=== PATIENT | female | born 1930 | race Caucasian/White ===

== ENCOUNTER 2017-06-22 16:53 | Inpatient (IN) | payer MEDICARE, BC ==
[2017-06-22] MEDS ORDERED: SODIUM CHLORIDE 0.9% 1,000 ML IV STA (17:23)
[2017-06-22] MEDS ORDERED: SODIUM CHLORIDE 0.9% 500 ML IV STA (17:23)
[2017-06-22] MEDS ORDERED: RX INFO: IV CONTRAST WAS GIVEN 1 EACH MISC MISCELLANE PRN (17:24)
--- NOTE | 2017-06-22 17:31 | ED ---
Abdominal Pain HPI - General Chief Complaint: Abdominal Pain Stated Complaint: Abd Pain Time Seen by Provider: 06/22/17 17:05 Source: patient, EMS, RN notes reviewed, old records reviewed Mode of arrival: EMS Limitations: no limitations - History of Present Illness Initial Comments: This is an 87-year-old female presenting to the emergency department via EMS from a transfer of metal edge of the elbow. Patient complains of diffuse abdominal pain for the past day. Patient reports that she did have a loose bowel movement yesterday but was very small. She reports that she feels as if she still constipated. She states that the pain radiates to her entire abdomen. She states that she's had no difficulty with urination. She does have a history of COPD but states that she has been short of breath. She is currently on oxygen. Patient denies any fever or chills. She denies any vomiting but states that she feels very full and bloated. Patient has a past medical history hyperlipidemia, hypertension, COPD, CAD, and weakness. She is a DO NOT RESUSCITATE order. - Related Data Home Medications Medication Instructions Recorded Confirmed Acetaminophen Tab [Tylenol Tab] 650 mg PO Q6H PRN 06/22/17 06/22/17 Amino Acids/Protein Hydrolys 30 ml PO BID 06/22/17 06/22/17 [Pro-Stat Supplement] Artificial Tears-Hypromellose 2 drops BOTH EYES BID PRN 06/22/17 06/22/17 [Artificial Tear Drops] Aspirin EC [Ecotrin Low Dose] 81 mg PO HS 06/22/17 06/22/17 Bisacodyl 10 mg RECTAL DAILY PRN 06/22/17 06/22/17 Ciclopirox Olamine [Loprox 0.77% 1 applic TOPICAL BID 06/22/17 06/22/17 cream] Citalopram Hydrobromide [CeleXA] 20 mg PO DAILY 06/22/17 06/22/17 Ipratropium-Albuterol Nebulize 3 ml INHALATION RT-Q6H PRN 06/22/17 06/22/17 [Duoneb 0.5 mg-3 mg/3 ml Soln] Latanoprost Ophth [Xalatan 0.005%] 1 drops BOTH EYES HS@199906/22/17 06/22/17 Magnesium Hydroxide [Milk of 2,400 mg PO DAILY PRN 06/22/17 06/22/17 Magnesia] Meclizine [Antivert] 12.5 mg PO Q8H PRN 06/22/17 06/22/17 Omeprazole 20 mg PO DAILY 06/22/17 06/22/17 Polyethylene Glycol 3350 [Miralax] 17 gm PO DAILY 06/22/17 06/22/17 Sennosides [Senna] 8.6 mg PO HS@2000 06/22/17 06/22/17 amLODIPine/ATORVASTATIN [Caduet 10 1 tab PO DAILY 06/22/17 06/22/17 mg-10 mg Tablet] Allergies Allergy/AdvReac Type Severity Reaction Status Date / Time No Known Allergies Allergy Verified 06/22/17 17:22 Review of Systems ROS Statement: Those systems with pertinent positive or pertinent negative responses have been documented in the HPI. ROS Other: All systems not noted in ROS Statement are negative. Past Medical History Past Medical History: COPD, Hyperlipidemia, Hypertension Additional Past Medical History / Comment(s): sepsis, CKD, UTI History of Any Multi-Drug Resistant Organisms: None Reported Past Surgical History: Orthopedic Surgery Past Psychological History: Depression Smoking Status: Never smoker Past Alcohol Use History: None Reported Past Drug Use History: None Reported - Past Family History Brother(s) Family Medical History: Cancer Father Family Medical History: Cancer Additional Family Medical History / Comment(s): lung cancer and ? colon cancer Mother Family Medical History: CVA/TIA General Exam - General Exam Comments Initial Comments: Zahra 87-year-old female. Patient appears acutely ill. Limitations: no limitations General appearance: alert, in no apparent distress Head exam: Present: atraumatic, normocephalic, normal inspection Eye exam: Present: normal appearance, PERRL, EOMI. Absent: scleral icterus, conjunctival injection, periorbital swelling ENT exam: Present: normal exam. Absent: mucous membranes moist (Membranes are dry.) Neck exam: Present: normal inspection. Absent: tenderness, meningismus, lymphadenopathy Respiratory exam: Present: normal lung sounds bilaterally. Absent: respiratory distress, wheezes, rales, rhonchi, stridor Cardiovascular Exam: Present: regular rate, normal rhythm, normal heart sounds. Absent: systolic murmur, diastolic murmur, rubs, gallop, clicks GI/Abdominal exam: Present: soft, tenderness (Patient has diffuse tenderness in the abdomen. Left lower quadrant and right lower quadrant feel firm.), normal bowel sounds, diminished bowel sounds (Patient has diminished bowel sounds in the left lower quadrant.). Absent: distended, guarding, rebound, rigid Extremities exam: Present: normal inspection, full ROM, normal capillary refill. Absent: tenderness, pedal edema, joint swelling, calf tenderness Back exam: Present: normal inspection Neurological exam: Present: alert, oriented X3, CN II-XII intact Psychiatric exam: Present: normal affect, normal mood Skin exam: Present: warm, dry, intact, normal color. Absent: rash Course Vital Signs 06/22/17 06/22/17 06/22/17 17:01 17:59 18:06 Temperature 97.1 F L Pulse Rate 92 87 Respiratory 20 16 16 Rate Blood Pressure 121/61 127/72 O2 Sat by Pulse 95 97 Oximetry 06/22/17 06/22/17 06/22/17 20:00 21:00 21:48 Temperature 97.6 F Pulse Rate 80 77 Respiratory 16 16 16 Rate Blood Pressure 103/63 130/64 O2 Sat by Pulse 97 97 96 Oximetry 06/22/17 21:54 Temperature 97.5 F L Pulse Rate 81 Respiratory 16 Rate Blood Pressure 110/59 O2 Sat by Pulse 97 Oximetry Medical Decision Making - Medical Decision Making This is an 87-year-old female presenting to the emergency department via EMS from a transfer of [facility]. Patient complains of diffuse abdominal pain for the past day. Patient reports that she did have a loose bowel movement yesterday but was very small. She reports that she feels as if she still constipated. She states that the pain radiates to her entire abdomen. She states that she's had no difficulty with urination. She does have a history of COPD but states that she has been short of breath. She is currently on oxygen. Patient denies any fever or chills. She denies any vomiting but states that she feels very full and bloated. Patient's lab work was reviewed as negative for any significant acute process. Patient has significant tenderness and firmness over the abdomen. CT abdomen and pelvis without contrast was obtained due to her poor renal function. CT showed significant amount of ascites. We discussed this with the patient seems to be new. Patient's chest x-ray was also reviewed signs of mild heart for a. BNP is elevated. I discussed with Dr. Falcon. He discussed this case with Dr. Jalloh. He recommended lab work to be obtained after doing her elbow centesis procedure. Dr. Falcon did obtain a sample of ascites fluid. This will be sent for testing. Put the patient on Rocephin and Flagyl preemptively, if this this could be infected SBP due to patient's significant tenderness. Case discussed with [facility] hospitalist with consult to Dr. Jalloh. - Lab Data Result diagrams: 06/22/17 17:50 06/22/17 17:50 Lab Results 06/22/17 06/22/17 06/22/17 Range/Units 17:50 17:50 17:50 WBC 9.3 (3.8-10.6) k/uL RBC 3.30 L (3.80-5.40) m/uL Hgb 9.2 L (11.4-16.0) gm/dL Hct 29.5 L (34.0-46.0) % MCV 89.3 (80.0-100.0) fL MCH 27.8 (25.0-35.0) pg MCHC 31.1 (31.0-37.0) g/dL RDW 13.8 (11.5-15.5) % Plt Count 642 H (150-450) k/uL Neutrophils % 81 % Lymphocytes % 7 % Monocytes % 8 % Eosinophils % 1 % Basophils % 0 % Neutrophils # 7.6 (1.3-7.7) k/uL Lymphocytes # 0.7 L (1.0-4.8) k/uL Monocytes # 0.8 (0-1.0) k/uL Eosinophils # 0.1 (0-0.7) k/uL Basophils # 0.0 (0-0.2) k/uL PT (9.0-12.0) sec INR (<1.2) APTT (22.0-30.0) sec Sodium 133 L (137-145) mmol/L Potassium 4.8 (3.5-5.1) mmol/L Chloride 99 (98-107) mmol/L Carbon Dioxide 23 (22-30) mmol/L Anion Gap 11 mmol/L BUN 66 H (7-17) mg/dL Creatinine 1.50 H (0.52-1.04) mg/dL Est GFR (MDRD) Af Amer 40 (>60 ml/min/1.73 sqM) Est GFR (MDRD) Non-Af 33 (>60 ml/min/1.73 sqM) Glucose 128 H (74-99) mg/dL Plasma Lactic Acid Hamzah (0.7-2.0) mmol/L Calcium 8.6 (8.4-10.2) mg/dL Magnesium 2.5 H (1.6-2.3) mg/dL Total Bilirubin 0.2 (0.2-1.3) mg/dL AST 35 (14-36) U/L ALT 46 (9-52) U/L Alkaline Phosphatase 112 (38-126) U/L Total Creatine Kinase <20 L (30-135) U/L CK-MB (CK-2) 0.7 (0.0-2.4) ng/mL CK-MB (CK-2) Rel Index 0.0 Troponin I <0.012 (0.000-0.034) ng/mL NT-Pro-B Natriuret Pep pg/mL Total Protein 5.6 L (6.3-8.2) g/dL Albumin 2.8 L (3.5-5.0) g/dL Amylase 44 (30-110) U/L Lipase 131 (23-300) U/L 06/22/17 06/22/17 06/22/17 Range/Units 17:50 17:50 17:50 WBC (3.8-10.6) k/uL RBC (3.80-5.40) m/uL Hgb (11.4-16.0) gm/dL Hct (34.0-46.0) % MCV (80.0-100.0) fL MCH (25.0-35.0) pg MCHC (31.0-37.0) g/dL RDW (11.5-15.5) % Plt Count (150-450) k/uL Neutrophils % % Lymphocytes % % Monocytes % % Eosinophils % % Basophils % % Neutrophils # (1.3-7.7) k/uL Lymphocytes # (1.0-4.8) k/uL Monocytes # (0-1.0) k/uL Eosinophils # (0-0.7) k/uL Basophils # (0-0.2) k/uL PT 10.5 (9.0-12.0) sec INR 1.0 (<1.2) APTT 25.7 (22.0-30.0) sec Sodium (137-145) mmol/L Potassium (3.5-5.1) mmol/L Chloride (98-107) mmol/L Carbon Dioxide (22-30) mmol/L Anion Gap mmol/L BUN (7-17) mg/dL Creatinine (0.52-1.04) mg/dL Est GFR (MDRD) Af Amer (>60 ml/min/1.73 sqM) Est GFR (MDRD) Non-Af (>60 ml/min/1.73 sqM) Glucose (74-99) mg/dL Plasma Lactic Acid Hamzah 1.2 (0.7-2.0) mmol/L Calcium (8.4-10.2) mg/dL Magnesium (1.6-2.3) mg/dL Total Bilirubin (0.2-1.3) mg/dL AST (14-36) U/L ALT (9-52) U/L Alkaline Phosphatase (38-126) U/L Total Creatine Kinase (30-135) U/L CK-MB (CK-2) (0.0-2.4) ng/mL CK-MB (CK-2) Rel Index Troponin I (0.000-0.034) ng/mL NT-Pro-B Natriuret Pep 1290 pg/mL Total Protein (6.3-8.2) g/dL Albumin (3.5-5.0) g/dL Amylase (30-110) U/L Lipase (23-300) U/L 06/22/17 18:08 Normal sinus rhythm. Left axis deviation. Low QRS. Possible anterolateral infarct. Ventricular rate 89 bpm. AK interval normal at 92 ms. QRS duration 86 ms. QT QTc is 328/399 milliseconds. No evidence of ST elevation or T-wave inversion. No evidence of atrial or ventricular arrhythmias. - Radiology Data Radiology results: report reviewed Chest x-ray shows considering CHF exacerbation as there is cardiomegaly with small bilateral pleural effusions. Possible spiculated infiltrate or nodule of the right upper lung nonemergent contrast-enhanced CT advised. Several carotid pulsations bilaterally. Nonemergent carotid ultrasound advised to assess for stenosis. Increased aortic none, cannot exclude aneurysm. This could be his reassessed with follow-up chest CT is recommended for second pressure. This was read by Dr. davis. CT abdomen and pelvis- Minor amount of abdominal pelvic ascites, unclear Etiology. Underlying cirrhosis is not excluded. Liver and lab correlation advised. Non-simple etiology not excluded. Ultrasound did a guided paracentesis for diagnostic and therapeutic benefits can be performed if desired. Moderate to large sized hiatal present.This show no dilation of large or bowel loops. Perhaps mild wall thickening of the left sided midabdominal small bowel loops. Disposition Clinical Impression: Ascites, Acute renal insufficiency, Abdominal pain, CHF (congestive heart failure) Disposition: ADMITTED IP TO THIS HOSP Condition: Stable Time of Disposition: 21:10
[2017-06-22] MEDS ORDERED: MORPHINE SULFATE 4 MG/ML SYRINGE IVP STA (17:41)
[2017-06-22 18:04] LABS: Basophils % (A) 0 %; CH 28.7; CHCM 32.2; Eosinophils # (A) 0.1 k/uL (0-0.7); Eosinophils % (A) 1 %; HCT 29.5 % (34.0-46.0); HDW 2.69; HGB 9.2 gm/dL (11.4-16.0); Luc # (Auto) 0.12; Luc % (Auto) 1; Lymphocytes # (A) 0.7 k/uL (1.0-4.8); Lymphocytes % (A) 7 %; MCH 27.8 pg (25.0-35.0); MCHC 31.1 g/dL (31.0-37.0); MCV 89.3 fL (80.0-100.0); Mean Platelet Volume 7.2; Monocytes # (A) 0.8 k/uL (0-1.0); Monocytes % (A) 8 %; Neutrophils # (A) 7.6 k/uL (1.3-7.7); Neutrophils % (A) 81 %; RDW 13.8 % (11.5-15.5); WBC 9.3 k/uL (3.8-10.6); WBC (Perox) 9.81
[2017-06-22 18:12] LABS: Calcium 8.6 mg/dL (8.4-10.2); Magnesium 2.5 mg/dL (1.6-2.3); Potassium 4.8 mmol/L (3.5-5.1); Total Bilirubin 0.2 mg/dL (0.2-1.3); Total Protein 5.6 g/dL (6.3-8.2)
[2017-06-22 18:16] LABS: Partial Thromboplastin Time 25.7 sec (22.0-30.0); Prothrombin Time 10.5 sec (9.0-12.0)
[2017-06-22 18:31] LABS: Creatine Kinase <20 U/L (30-135)
[2017-06-22 18:45] LABS: Creatine Kinase MB 0.7 ng/mL (0.0-2.4); Troponin I <0.012 ng/mL (0.000-0.034)
--- NOTE | 2017-06-22 18:59 | XR ---
EXAMINATION TYPE: XR chest 2V DATE OF EXAM: 06/22/2017 COMPARISON: Chest x-ray September 25, 2012. CT abdomen and pelvis earlier today. HISTORY: History of COPD with chest pain. TECHNIQUE: Frontal and lateral views of the chest are obtained. FINDINGS: Osseous structures are demineralized. Exaggerated thoracic kyphosis is redemonstrated. The re is degenerative change right shoulder with high riding humeral head suggesting chronic rotator cuf f tear. There is prominent vascular calcification bilateral neck presumed near carotid bulbs, follow- up carotid ultrasound advised. There is redemonstration of cardiomegaly and low lung volumes with small bilateral pleural effusions and associated bibasilar atelectasis and/or infiltrate. Cannot exclude new spiculated nodule or infil trate right upper lung over posterior sixth rib. Ectatic aorta causing mass effect on trachea deviate d to right is more prominent than prior. No pneumothorax is seen bilaterally. IMPRESSION: 1. Consider CHF exacerbation as there is cardiomegaly with new small bilateral pleural effusions, cli nical correlation advised. 2. Possible spiculated infiltrate or nodule right upper lung, nonemergent contrast-enhanced chest CT advised. 3. Severe carotid calcifications bilaterally, nonemergent carotid ultrasound advised to assess for si gnificant stenosis. 4. Increasing ectatic aortic knob, cannot exclude aneurysm, this can be reassessed with follow-up rashaad st CT as recommended for second impression.
--- NOTE | 2017-06-22 19:09 | CT ---
EXAMINATION TYPE: CT abdomen pelvis wo con DATE OF EXAM: 06/22/2017 HISTORY: Generalized abdominal pain. CT DLP: 1053.30 mGycm. Automated Exposure Control for Dose Reduction was Utilized. TECHNIQUE: CT scan of the abdomen and pelvis is performed without oral or IV contrast. COMPARISON: NONE FINDINGS: Within the limitations of a non-contrast study, the following observations are made. LUNG BASES: Cardiomegaly with small bilateral pleural effusions is present. There is small to moderat e size pericardial effusion anteriorly and inferiorly noted. There is coronary artery calcification a nd/or stent the RCA distribution. There is moderate to large size hiatal hernia. There is heterogeneo usly dense fibroglandular tissue with scattered dystrophic calcifications in the visualized right christiano ast. LIVER/GB: Liver is heterogeneous in appearance and somewhat small in size with lobulated contour. Cor relate for cirrhosis. Surrounding ascites is present. PANCREAS: No significant abnormality is seen. SPLEEN: Spleen is not enlarged. ADRENALS: Nonspecific slight nodular thickening to both adrenal glands is favored to reflect hyperpla kindra. KIDNEYS: There is cortical thinning in both kidneys. There is 2.4 cm low dense lesion posterolaterall y upper to mid pole level left kidney felt to reflect simple cyst. BOWEL: Evaluation of bowel is suboptimal secondary to lack of enteric contrast. Moderate to large siz e hiatal hernia is present. There is poor distention of stomach. There is fluid in the antrum. There is no suspicious dilatation of small or large bowel loops. There is perhaps mild wall thickening of l eft sided mid abdominal small bowel loops. Ingested pill that is not nonabsorptive seen in the rectum . Additional ingested pills are seen dependently in the cecum. GENITAL ORGANS: Uterus is anteverted in shape and not suspiciously enlarged. A few scattered pelvic p hleboliths are seen. LYMPH NODES: No greater than 1cm abdominal or pelvic lymph nodes are appreciated. OSSEOUS STRUCTURES: Osseous structures are demineralized. There is moderate to severe multilevel spur ring in the spine. Underlying scoliosis is present. There is multilevel vacuum disc phenomenon with d isc space narrowing in the lumbar spine. Prominent facet arthropathy lower lumbar levels is seen. There is moderate to severe joint space loss and spurring in the right hip joint. There is moderate j oint space loss and left hip joint. OTHER: There is moderate amount of abdominal and pelvic fluid or ascites. Some nodularity in the uppe r abdominal mesentery could reflect product of ascites, nonsimple fluid or omental caking cannot be e xcluded. There is ectatic abdominal aorta with moderate calcified plaque. IMPRESSION: 1. Moderate amount of abdominal and pelvic ascites. Etiology uncertain. Underlying cirrhosis is not e xcluded. Liver and lab correlation advised. Nonsimple etiology not excluded. Ultrasound guided parace ntesis for diagnostic and therapeutic benefits can be performed if desired. 2.
[2017-06-22] MEDS ORDERED: NALOXONE 0.4 MG/ML 1 ML VIAL IV PRN (21:13)
[2017-06-22] MEDS ORDERED: metroNIDAZOLE-NS PMX 500 MG in SALINE 1 100ML.BAG IVPB STA (21:16)
[2017-06-22] MEDS: SODIUM CHLORIDE 0.9% 1,000 ML IV SCH (21:34)
[2017-06-22 22:16] LABS: RBC, Body Fluid 690 /uL
[2017-06-23 00:08] LABS: Glucose, BF Source Ascites
[2017-06-23 00:48] LABS: LDH, Body Fluid Source Ascites; T. Protein, Body Fluid Source Ascites; Total Protein, Body Fluid 3530 mg/dL
[2017-06-23] MEDS: MORPHINE SULFATE 4 MG/ML SYRINGE IV PRN ×2 (04:59→09:44)
[2017-06-23] MEDS: SODIUM CHLORIDE 0.9% 1,000 ML IV SCH (06:55)
[2017-06-23] MEDS: PANTOPRAZOLE 40 MG/10 ML VIAL IV SCH (08:19)
[2017-06-23 09:52] LABS: Body Fluid Comment Few Mesothelial
[2017-06-23 11:40] LABS: Calcium 8.2 mg/dL (8.4-10.2); Total Protein 5.1 g/dL (6.3-8.2)
[2017-06-23] MEDS: FUROSEMIDE 10 MG/ML 4 ML VIAL IV SCH ×2 (12:04→21:13)
[2017-06-23] MEDS ORDERED: MECLIZINE 12.5 MG TAB PO PRN (12:20)
[2017-06-23] MEDS ORDERED: MAGNESIUM HYDROXIDE 2,400 MG/10 ML CUP PO PRN (12:20)
[2017-06-23] MEDS ORDERED: BISACODYL 10 MG SUPP RECTAL PRN (12:20)
[2017-06-23] MEDS ORDERED: IPRATROPIUM-ALBUTEROL 3 ML NEB INHALATION PRN (12:20)
[2017-06-23] MEDS ORDERED: ARTIFICIAL TEARS-HYPROMELLOSE DROPS 15 ML BTL BOTH EYES PRN (12:20)
--- NOTE | 2017-06-23 12:22 | P.HPIM ---
History of Present Illness 87-year-old female was sent in from [facility] for abdominal pain just below the medical area. Patient is extremely poor historian and patient did extend appears to be extremely fatigued because of which she is unable to provide me clear history. Patient apparently has sharp abdominal pain much of the history is not available I'm trying to reach the family members. Patient was recently admitted in [facility] was subsequently discharged to subacute recommendation after that hospitalization. And patient apparently was evaluated for ascites abdominal pain during that time as well. Patient had a site is here. Although did not have any fever patient is found to be in renal failure did not have any previous labs in this hospital. Patient underwent paracentesis and ascites fluid is exudative by reviewed the CAT scan of the abdomen which is suspicious for cirrhosis. Although patient doesn't have any other peripheral signs of cirrhosis patient does have minimal ascites at this time. And the patient does have increase in the WBC count, but not high enough to say spontaneous [place] peritonitis. But patient will be continued on Rocephin considering her symptoms and had a vague history. Patient also has pulmonary edema along with elevated JVD because of which I'm obtaining an echocardiogram. Patient does have hyponatremia which is hypovolemic hyponatremia because of which patient will be started on Lasix IV fluids will be discontinued. I will also obtain CA-125 and CA 19-9 along with carcinoembryonic antigen Review of Systems Unable to get much of the history from the patient as patient is extremely poor historian may be because of her acute medical issue Past Medical History Past Medical History: COPD, Hyperlipidemia, Hypertension Additional Past Medical History / Comment(s): sepsis, CKD, UTI History of Any Multi-Drug Resistant Organisms: None Reported Past Surgical History: Orthopedic Surgery Additional Past Surgical History / Comment(s): EVELIN CATARACTS, PARTIAL HYSTERECTOMY, RT KNEE REPLACMENT Past Anesthesia/Blood Transfusion Reactions: No Reported Reaction Past Psychological History: Depression Smoking Status: Never smoker Past Alcohol Use History: None Reported Past Drug Use History: None Reported - Past Family History Brother(s) Family Medical History: Cancer Father Family Medical History: Cancer Additional Family Medical History / Comment(s): lung cancer and ? colon cancer Mother Family Medical History: CVA/TIA Medications and Allergies Home Medications Medication Instructions Recorded Confirmed Type Acetaminophen Tab [Tylenol Tab] 650 mg PO Q6H PRN 06/22/17 06/22/17 History Amino Acids/Protein Hydrolys 30 ml PO BID 06/22/17 06/22/17 History [Pro-Stat Supplement] Artificial Tears-Hypromellose 2 drops BOTH EYES BID PRN 06/22/17 06/22/17 History [Artificial Tear Drops] Aspirin EC [Ecotrin Low Dose] 81 mg PO HS 06/22/17 06/22/17 History Bisacodyl 10 mg RECTAL DAILY PRN 06/22/17 06/22/17 History Ciclopirox Olamine [Loprox 0.77% 1 applic TOPICAL BID 06/22/17 06/22/17 History cream] Citalopram Hydrobromide [CeleXA] 20 mg PO DAILY 06/22/17 06/22/17 History Ipratropium-Albuterol Nebulize 3 ml INHALATION RT-Q6H PRN 06/22/17 06/22/17 History [Duoneb 0.5 mg-3 mg/3 ml Soln] Latanoprost Ophth [Xalatan 0.005%] 1 drops BOTH EYES HS@199906/22/17 06/22/17 History Magnesium Hydroxide [Milk of 2,400 mg PO DAILY PRN 06/22/17 06/22/17 History Magnesia] Meclizine [Antivert] 12.5 mg PO Q8H PRN 06/22/17 06/22/17 History Omeprazole 20 mg PO DAILY 06/22/17 06/22/17 History Polyethylene Glycol 3350 [Miralax] 17 gm PO DAILY 06/22/17 06/22/17 History Sennosides [Senna] 8.6 mg PO HS@199906/22/17 06/22/17 History amLODIPine/ATORVASTATIN [Caduet 10 1 tab PO DAILY 06/22/17 06/22/17 History mg-10 mg Tablet] Allergies Allergy/AdvReac Type Severity Reaction Status Date / Time No Known Allergies Allergy Verified 06/22/17 17:22 Physical Exam Vitals: Vital Signs Temp Pulse Pulse Resp BP BP Pulse Ox 06/23/17 07:00 97.1 F L 88 16 117/63 93 L 06/22/17 23:00 97.0 F L 80 16 124/61 97 06/22/17 21:54 97.5 F L 81 16 110/59 97 08/09/17 21:48 77 16 96 06/22/17 21:00 97.6 F 80 16 130/64 97 06/22/17 20:00 16 103/63 97 06/22/17 18:06 87 16 127/72 97 06/22/17 17:59 16 06/22/17 17:01 97.1 F L 92 20 121/61 95 Intake and Output 06/22/17 06/23/17 06/23/17 22:59 06:59 14:59 Intake Total 1500 Balance 1500 Intake: Amount of Fluid Infused ( 1500 ml) Other: Voiding Method Bedpan # Voids 2 1 Weight 77.111 kg 85.5 kg 85.5 kg Patient Weight 06/24/17 06:59 Weight 85.5 kg PHYSICAL EXAMINATION: GENERAL: The patient is alert, extremely fatigued unable does his orientation, not in any acute distress. Well developed, well nourished. HEENT: Pupils are round and equally reacting to light. EOMI. No scleral icterus. No conjunctival pallor. Normocephalic, atraumatic. No pharyngeal erythema. No thyromegaly. CARDIOVASCULAR: S1 and S2 present. No murmurs, rubs, or gallops. PULMONARY: Chest is clear to auscultation, no wheezing or crackles. ABDOMEN: Does have minimal ascites with tenderness in the left side just below the medical area., No rebound or rigidity. MUSCULOSKELETAL: No joint swelling or deformity. EXTREMITIES: No cyanosis, clubbing, or pedal edema. NEUROLOGICAL: Gross neurological examination did not reveal any focal deficits. SKIN: No rashes. Results CBC & Chem 7: 06/22/17 17:50 06/23/17 11:09 Labs: Abnormal Lab Results - Last 24 Hours (Table) 06/22/17 06/22/17 06/22/17 Range/Units 17:50 17:50 17:50 RBC 3.30 L (3.80-5.40) m/uL Hgb 9.2 L (11.4-16.0) gm/dL Hct 29.5 L (34.0-46.0) % Plt Count 642 H (150-450) k/uL Lymphocytes # 0.7 L (1.0-4.8) k/uL Sodium 133 L (137-145) mmol/L Carbon Dioxide (22-30) mmol/L BUN 66 H (7-17) mg/dL Creatinine 1.50 H (0.52-1.04) mg/dL Glucose 128 H (74-99) mg/dL Calcium (8.4-10.2) mg/dL Magnesium 2.5 H (1.6-2.3) mg/dL Total Creatine Kinase <20 L (30-135) U/L Total Protein 5.6 L (6.3-8.2) g/dL Albumin 2.8 L (3.5-5.0) g/dL 06/23/17 Range/Units 11:09 RBC (3.80-5.40) m/uL Hgb (11.4-16.0) gm/dL Hct (34.0-46.0) % Plt Count (150-450) k/uL Lymphocytes # (1.0-4.8) k/uL Sodium 135 L (137-145) mmol/L Carbon Dioxide 21 L (22-30) mmol/L BUN 60 H (7-17) mg/dL Creatinine 1.30 H (0.52-1.04) mg/dL Glucose 107 H (74-99) mg/dL Calcium 8.2 L (8.4-10.2) mg/dL Magnesium (1.6-2.3) mg/dL Total Creatine Kinase (30-135) U/L Total Protein 5.1 L (6.3-8.2) g/dL Albumin 2.5 L (3.5-5.0) g/dL Microbiology - Last 24 Hours (Table) 06/22/17 21:10 Gram Stain - Preliminary Ascites Fluid Body Fluid Culture - Preliminary Assessment and Plan Plan: 1 abdominal pain: Patient does have ascites as well my suspicion is low for spontaneous bacterial peritonitis I'm unsure of the exact etiology of her abdominal pain. For now we will continue with [facility] concerning her abdominal tenderness. We will obtain medical records from [facility]. We'll also discuss with the family members. 2 hyponatremia: Hypervolemic hyponatremia secondary to possible CHF exacerbation or cirrhosis. Will be started on Lasix IV fluids will be discussed. #3 ASCITIs: Exudative in nature because of which I'm treating for peritonitis. Other etiologies will be ruled out with the above-mentioned tests. #4 possible congestive heart failure, unknown systolic function: Is in acute exacerbation expected to improve with Lasix. Echocardiogram is being obtained and BNP is not very high. #5 hyperlipidemia #6 COPD without any acute exacerbation. 7 depression
[2017-06-23 12:31] LABS: Total Bilirubin 0.2 mg/dL (0.2-1.3)
[2017-06-23 20:23] LABS: Cancer Antigen 125 305.3 U/mL (0.0-30.1)
[2017-06-23] MEDS: ASPIRIN 81 MG CHEW PO SCH (21:11)
[2017-06-23] MEDS: LATANOPROST 0.005% OPHTH DROPS 2.5 ML BTL BOTH EYES SCH (21:11)
[2017-06-23] MEDS: SENNOSIDES 8.6 MG TAB PO SCH (21:11)
[2017-06-23] MEDS: CLOTRIMAZOLE 1% CREAM 15 GM TUBE TOPICAL SCH (21:12)
[2017-06-23] MEDS: traMADol 50 MG TAB PO PRN (21:15)
--- NOTE | 2017-06-23 21:26 | P.CONS ---
History of Present Illness - Reason for Consult Consult date: 06/23/17 - History of Present Illness The patient is an 87-year old female who was admitted to the hospital for abdominal pain and new onset of ascites. Patient was recently hospitalized at [facility] for pain and constipation, encephalopathy and UTI. She has a known Hx of CHF. She has never had ascities or conditions associated with it. Patient had a diagnostic paracentesis in the ER. Cytology pending. Review of Systems 12-point ROS is negative except as PI above Past Medical History Past Medical History: COPD, Hyperlipidemia, Hypertension Additional Past Medical History / Comment(s): sepsis, CKD, UTI History of Any Multi-Drug Resistant Organisms: None Reported Past Surgical History: Orthopedic Surgery Additional Past Surgical History / Comment(s): EVELIN CATARACTS, PARTIAL HYSTERECTOMY, RT KNEE REPLACMENT Past Anesthesia/Blood Transfusion Reactions: No Reported Reaction Past Psychological History: Depression Smoking Status: Never smoker Past Alcohol Use History: None Reported Past Drug Use History: None Reported - Past Family History Brother(s) Family Medical History: Cancer Father Family Medical History: Cancer Additional Family Medical History / Comment(s): lung cancer and ? colon cancer Mother Family Medical History: CVA/TIA Medications and Allergies Home Medications Medication Instructions Recorded Confirmed Type Acetaminophen Tab [Tylenol Tab] 650 mg PO Q6H PRN 06/22/17 06/22/17 History Amino Acids/Protein Hydrolys 30 ml PO BID 06/22/17 06/22/17 History [Pro-Stat Supplement] Artificial Tears-Hypromellose 2 drops BOTH EYES BID PRN 06/22/17 06/22/17 History [Artificial Tear Drops] Aspirin EC [Ecotrin Low Dose] 81 mg PO HS 06/22/17 06/22/17 History Bisacodyl 10 mg RECTAL DAILY PRN 06/22/17 06/22/17 History Ciclopirox Olamine [Loprox 0.77% 1 applic TOPICAL BID 06/22/17 06/22/17 History cream] Citalopram Hydrobromide [CeleXA] 20 mg PO DAILY 06/22/17 06/22/17 History Ipratropium-Albuterol Nebulize 3 ml INHALATION RT-Q6H PRN 06/22/17 06/22/17 History [Duoneb 0.5 mg-3 mg/3 ml Soln] Latanoprost Ophth [Xalatan 0.005%] 1 drops BOTH EYES HS@199906/22/17 06/22/17 History Magnesium Hydroxide [Milk of 2,400 mg PO DAILY PRN 06/22/17 06/22/17 History Magnesia] Meclizine [Antivert] 12.5 mg PO Q8H PRN 06/22/17 06/22/17 History Omeprazole 20 mg PO DAILY 06/22/17 06/22/17 History Polyethylene Glycol 3350 [Miralax] 17 gm PO DAILY 06/22/17 06/22/17 History Sennosides [Senna] 8.6 mg PO HS@199906/22/17 06/22/17 History amLODIPine/ATORVASTATIN [Caduet 10 1 tab PO DAILY 06/22/17 06/22/17 History mg-10 mg Tablet] Allergies Allergy/AdvReac Type Severity Reaction Status Date / Time No Known Allergies Allergy Verified 06/22/17 17:22 Physical Exam Vitals: Vital Signs Temp Pulse Pulse Resp BP BP Pulse Ox 06/23/17 16:00 16 06/23/17 15:00 100.0 F H 93 16 107/59 92 L 06/23/17 07:00 97.1 F L 88 16 117/63 93 L 06/22/17 23:00 97.0 F L 80 16 124/61 97 06/22/17 21:54 97.5 F L 81 16 110/59 97 06/22/17 21:48 77 16 96 Intake and Output 06/23/17 06/23/17 06/23/17 06:59 14:59 22:59 Other: # Voids 2 1 Weight 85.5 kg 85.5 kg Patient Weight 06/24/17 06:59 Weight 85.5 kg GENERAL: The patient is alert, extremely fatigued unable does his orientation, not in any acute distress. Well developed, well nourished. HEENT: Pupils are round and equally reacting to light. EOMI. No scleral icterus. No conjunctival pallor. Normocephalic, atraumatic. No pharyngeal erythema. No thyromegaly. CARDIOVASCULAR: S1 and S2 present. No murmurs, rubs, or gallops. PULMONARY: Chest is clear to auscultation, no wheezing or crackles. ABDOMEN: Does have minimal ascites with tenderness in the left side just below the medical area., No rebound or rigidity. MUSCULOSKELETAL: No joint swelling or deformity. EXTREMITIES: No cyanosis, clubbing, or pedal edema. NEUROLOGICAL: Gross neurological examination did not reveal any focal deficits. SKIN: No rashes. Results CBC & Chem 7: 06/25/17 07:26 06/26/17 07:50 Labs: Abnormal Lab Results - Last 24 Hours (Table) 06/23/17 Range/Units 11:09 Sodium 135 L (137-145) mmol/L Carbon Dioxide 21 L (22-30) mmol/L BUN 60 H (7-17) mg/dL Creatinine 1.30 H (0.52-1.04) mg/dL Glucose 107 H (74-99) mg/dL Calcium 8.2 L (8.4-10.2) mg/dL Total Protein 5.1 L (6.3-8.2) g/dL Albumin 2.5 L (3.5-5.0) g/dL Microbiology - Last 24 Hours (Table) 06/22/17 21:10 Gram Stain - Preliminary Ascites Fluid Body Fluid Culture - Preliminary Assessment and Plan Plan: Abdominal pain and new onset ascites. No definite history of liver disease.An infectious process should be considered as you have suggested. Malignancy to be kept in mind in this age group. Will continue rocephin and re-evaluate regularly. I will discuss with you and follow with interest.
[2017-06-24] MEDS: traMADol 50 MG TAB PO PRN (07:21)
[2017-06-24] MEDS: CITALOPRAM HYDROBROMIDE 20 MG TAB PO SCH (08:21)
[2017-06-24] MEDS: POLYETHYLENE GLYCOL 3350 17 GM POWD.PACK PO SCH (08:21)
[2017-06-24] MEDS: FUROSEMIDE 10 MG/ML 4 ML VIAL IV SCH (08:22)
[2017-06-24] MEDS: PANTOPRAZOLE 40 MG/10 ML VIAL IV SCH (08:22)
[2017-06-24] MEDS: CLOTRIMAZOLE 1% CREAM 15 GM TUBE TOPICAL SCH ×2 (08:22→20:18)
[2017-06-24 08:54] LABS: CHCM 30.3; HCT 32.9 % (34.0-46.0); HDW 2.84; HGB 10.1 gm/dL (11.4-16.0); Hypochromasia Moderate; MCH 28.4 pg (25.0-35.0); MCHC 30.7 g/dL (31.0-37.0); MCV 92.6 fL (80.0-100.0); Mean Platelet Volume 7.4; RBC 3.56 m/uL (3.80-5.40)
[2017-06-24 09:13] LABS: Calcium 8.3 mg/dL (8.4-10.2); Total Bilirubin 0.9 mg/dL (0.2-1.3); Total Protein 5.8 g/dL (6.3-8.2)
[2017-06-24 09:20] LABS: Potassium 5.1 mmol/L (3.5-5.1)
--- NOTE | 2017-06-24 11:35 | ECHOF ---
Referral Reason:CHF MEASUREMENTS -------- HEIGHT: 165.1 cm WEIGHT: 85.3 kg BP: 117/63 RVIDd: 2.7 cm (< 3.3) IVSd: 0.9 cm (0.6 - 1.1) LVIDd: 5.1 cm (3.9 - 5.3) LVPWd: 0.9 cm (0.6 - 1.1) IVSs: 1.2 cm LVIDs: 3.8 cm LVPWs: 1.2 cm LA Diam: 3.8 cm (2.7 - 3.8) Ao Diam: 3.4 cm (2.0 - 3.7) AV Cusp: 1.9 cm (1.5 - 2.6) MV E Jean Paul: 0.64 m/s MV DecT: 321 ms MV A Jean Paul: 1.03 m/s MV E/A Ratio: 0.63 RAP: 5.00 mmHg RVSP: 9.09 mmHg FINDINGS -------- Sinus rhythm. This was a technically difficult study with suboptimal views. Overall left ventricular systolic function is low-normal with, an EF between 50 - 55 %. The right ventricle is normal in size and function. The left atrium is mildly dilated. The right atrium was not well visualized. 1.5mg of Definity was utilized for enhancement of images Aortic valve is trileaflet and is mildly thickened. Trace amount of aortic regurgitation. There is no evidence of aortic stenosis. The mitral valve leaflets are mildly thickened. There is trace to mild mitral regurgitation. Trace tricuspid regurgitation present. There is no evidence of pulmonary hypertension. The right ventricular systolic pressure, as measured by Doppler, is 9.09mmHg. Mild stenosis of the tricuspid valve. The pulmonic valve was not well visualized. The aortic root size is normal. IVC Not well visulized. There is a mild to moderate, generalized pericardial effusion present. Moderate P leural Effusion with Fibrin. CONCLUSIONS -------- 1. Sinus rhythm. 2. There is trace to mild mitral regurgitation. 3. Trace tricuspid regurgitation present. 4. There is no evidence of pulmonary hypertension. 5. The right ventricular systolic pressure, as measured by Doppler, is 9.09mmHg. 6. Mild stenosis of the tricuspid valve. 7. The pulmonic valve was not well visualized. 8. The aortic root size is normal. 9. IVC Not well visulized. 10. Large pleural Effusion with Fibrin. 11. This was a technically difficult study with suboptimal views. 12. Overall left ventricular systolic function is low-normal with, an EF between 50 - 55 %. 13. The left atrium is mildly dilated. 14. The right atrium was not well visualized. 15. 1.5mg of Definity was utilized for enhancement of images 16. Aortic valve is trileaflet and is mildly thickened. 17. Trace amount of aortic regurgitation. 18. The mitral valve leaflets are mildly thickened. GRAPE CUTTER: Trever Reddy RDCS
[2017-06-24] MEDS: HYDROcodone/APAP 5-325MG 1 EACH TAB PO PRN ×2 (11:56→19:47)
--- NOTE | 2017-06-24 13:53 | P.CRDCN ---
History of Present Illness Consult date: 06/24/17 History of present illness: This is an 87-year-old female with a past medical history COPD, hyperlipidemia, hypertension. She presented to the emergency room with complaints of extreme fatigue and abdominal pain with ascites. Patient is an extremely poor historian and unable to verbalize much during the exam. Much of the history is taken from previous hospital documentation. Cardiology has been consulted to evaluate for degree of possible heart failure. An echocardiogram was performed and indicates a possible small pericardial effusion, trace MR, trace TR, mild tricuspid stenosis, large pleural effusion, EF 50-55%, mildly dilated LA, aortic valve mildly thickened and mildly thickened mitral valve. pro -BNP 928. Review of Systems Pt does not answer questions appropriately. Nurse states this has been her baseline since admission. Past Medical History Past Medical History: COPD, Hyperlipidemia, Hypertension Additional Past Medical History / Comment(s): sepsis, CKD, UTI History of Any Multi-Drug Resistant Organisms: None Reported Past Surgical History: Orthopedic Surgery Additional Past Surgical History / Comment(s): EVELIN CATARACTS, PARTIAL HYSTERECTOMY, RT KNEE REPLACMENT Past Anesthesia/Blood Transfusion Reactions: No Reported Reaction Past Psychological History: Depression Smoking Status: Never smoker Past Alcohol Use History: None Reported Past Drug Use History: None Reported - Past Family History Brother(s) Family Medical History: Cancer Father Family Medical History: Cancer Additional Family Medical History / Comment(s): lung cancer and ? colon cancer Mother Family Medical History: CVA/TIA Medications and Allergies Home Medications Medication Instructions Recorded Confirmed Type Acetaminophen Tab [Tylenol Tab] 650 mg PO Q6H PRN 06/22/17 06/22/17 History Amino Acids/Protein Hydrolys 30 ml PO BID 06/22/17 06/22/17 History [Pro-Stat Supplement] Artificial Tears-Hypromellose 2 drops BOTH EYES BID PRN 06/22/17 06/22/17 History [Artificial Tear Drops] Aspirin EC [Ecotrin Low Dose] 81 mg PO HS 06/22/17 06/22/17 History Bisacodyl 10 mg RECTAL DAILY PRN 06/22/17 06/22/17 History Ciclopirox Olamine [Loprox 0.77% 1 applic TOPICAL BID 06/22/17 06/22/17 History cream] Citalopram Hydrobromide [CeleXA] 20 mg PO DAILY 06/22/17 06/22/17 History Ipratropium-Albuterol Nebulize 3 ml INHALATION RT-Q6H PRN 06/22/17 06/22/17 History [Duoneb 0.5 mg-3 mg/3 ml Soln] Latanoprost Ophth [Xalatan 0.005%] 1 drops BOTH EYES HS@199906/22/17 06/22/17 History Magnesium Hydroxide [Milk of 2,400 mg PO DAILY PRN 06/22/17 06/22/17 History Magnesia] Meclizine [Antivert] 12.5 mg PO Q8H PRN 06/22/17 06/22/17 History Omeprazole 20 mg PO DAILY 06/22/17 06/22/17 History Polyethylene Glycol 3350 [Miralax] 17 gm PO DAILY 06/22/17 06/22/17 History Sennosides [Senna] 8.6 mg PO HS@199906/22/17 06/22/17 History amLODIPine/ATORVASTATIN [Caduet 10 1 tab PO DAILY 06/22/17 06/22/17 History mg-10 mg Tablet] Allergies Allergy/AdvReac Type Severity Reaction Status Date / Time No Known Allergies Allergy Verified 06/22/17 17:22 Physical Exam Vitals: Vital Signs Temp Pulse Resp BP BP Pulse Ox 06/24/17 07:00 97.7 F 102 H 24 94/54 92 L 06/23/17 23:00 99.9 F H 92 14 105/53 94 L 06/23/17 16:00 16 06/23/17 15:00 100.0 F H 93 16 107/59 92 L Intake and Output 06/23/17 06/24/17 06/24/17 22:59 06:59 14:59 Intake Total 200 100 Balance 200 100 Intake: Intake, IV Titration 200 100 Amount Sodium Chloride 0.9% 1, 100 000 ml @ 100 mls/hr IV . Q10H STA Rx#:[id number] cefTRIAXone 1,000 mg In 100 100 Sodium Chloride 0.9% 50 ml @ 100 mls/hr IVPB 2100 MARICRUZ Rx#:[id number] Other: # Voids 1 3 1 Weight 80.5 kg GENERAL: This is a 87-year-old female in mild distress secondary to abdominal pain at the time of my examination. HEENT: Head is atraumatic, normocephalic. Pupils are equal, round. Sclerae anicteric. Conjunctivae are clear. Mucous membranes of the mouth are moist. Neck is supple. There is no jugular venous distention. No carotid bruit is heard. LUNGS: Clear to auscultation no wheezes, rales or rhonchi. No chest wall tenderness is noted on palpation or with deep breathing. HEART: Regular rate and rhythm without murmurs, rubs or gallops. S1 and S2 heard. ABDOMEN: Soft, tender on palpation throughout. Bowel sounds are heard. EXTREMITIES: 2+ peripheral pulses with mild evidence of peripheral edema to right lower extremity, non-pitting. No calf tenderness noted. NEUROLOGIC: Patient is awake, alert and responds to name. Doesn't answer questions appropriately. Results 06/24/17 08:03 06/24/17 08:03 Cardiac Enzymes 06/24/17 Range/Units 08:03 AST 29 (14-36) U/L CBC 06/24/17 Range/Units 08:03 WBC 12.0 H (3.8-10.6) k/uL RBC 3.56 L (3.80-5.40) m/uL Hgb 10.1 L (11.4-16.0) gm/dL Hct 32.9 L (34.0-46.0) % Plt Count 645 H (150-450) k/uL Comprehensive Metabolic Panel 06/24/17 Range/Units 08:03 Sodium 135 L (137-145) mmol/L Potassium 5.1 (3.5-5.1) mmol/L Chloride 103 (98-107) mmol/L Carbon Dioxide 20 L (22-30) mmol/L BUN 55 H (7-17) mg/dL Creatinine 1.30 H (0.52-1.04) mg/dL Glucose 117 H (74-99) mg/dL Calcium 8.3 L (8.4-10.2) mg/dL AST 29 (14-36) U/L ALT 32 (9-52) U/L Alkaline Phosphatase 97 (38-126) U/L Total Protein 5.8 L (6.3-8.2) g/dL Albumin 2.8 L (3.5-5.0) g/dL Current Medications Generic Name Dose Route Start Last Admin Trade Name Freq PRN Reason Stop Dose Admin Hydrocodone Bitart/Acetaminophen 1 each 06/24/17 10:13 06/24/17 11:56 [place] 5-325 PO 1 each Q6HR PRN Administration Pain Albuterol/Ipratropium 3 ml 06/23/17 12:20 Duoneb 0.5 Mg-3 Mg/3 Ml Soln INHALATION RT-Q6H PRN Shortness Of Breath Artificial Tears 2 drops 06/23/17 12:20 Artificial Tear Drops BOTH EYES BID PRN Dry Eye(s) Aspirin 81 mg 06/23/17 21:00 06/23/17 21:11 Aspirin PO 81 mg HS MARICRUZ Administration Bisacodyl 10 mg 06/23/17 12:20 Dulcolax RECTAL DAILY PRN Constipation Citalopram Hydrobromide 20 mg 06/24/17 09:00 06/24/17 08:21 Celexa PO Not Given DAILY MARICRUZ Clotrimazole 1 applic 06/23/17 21:00 06/24/17 08:22 Lotrimin Cream TOPICAL 1 applic BID MARICRUZ Administration Furosemide 40 mg 06/24/17 16:00 Lasix PO BID@0900,1600 MARICRUZ Ceftriaxone Sodium 1,000 mg/ 50 mls @ 100 mls/hr 06/23/17 21:00 06/23/17 21: 13 Sodium Chloride IVPB 100 mls/hr 2100 MARICRUZ Administration Latanoprost 1 drops 06/23/17 20:00 06/23/17 21:11 Xalatan 0.005% BOTH EYES 1 drops HS@2000 MARICRUZ Administration Magnesium Hydroxide 2,400 mg 06/23/17 12:20 Milk Of Magnesia PO DAILY PRN Constipation Meclizine HCl 12.5 mg 06/23/17 12:20 Antivert PO Q8H PRN DIZZINESS Miscellaneous Information 1 each 06/22/17 17:24 Rx Info: Iv Contrast Was Given MISCELLANE 06/24/17 17:25 DAILY PRN Per Protocol Naloxone HCl 0.2 mg 06/22/17 21:13 Narcan IV Q2M PRN Opioid Reversal Ondansetron HCl 4 mg 06/22/17 21:13 Zofran IVP Q8HR PRN Nausea And Vomiting Pantoprazole Sodium 40 mg 06/23/17 09:00 06/24/17 08:22 Protonix IV 40 mg DAILY MARICRUZ Administration Polyethylene Glycol 17 gm 06/24/17 09:00 06/24/17 08:21 Miralax PO Not Given DAILY MARICRUZ Senna 8.6 mg 06/23/17 20:00 06/23/17 21:11 Senokot PO 8.6 mg HS@2000 MARICRUZ Administration Intake and Output 06/23/17 06/24/17 06/24/17 22:59 06:59 14:59 Intake Total 200 100 Balance 200 100 Intake: Intake, IV Titration 200 100 Amount Sodium Chloride 0.9% 1, 100 000 ml @ 100 mls/hr IV . Q10H STA Rx#:[id number] cefTRIAXone 1,000 mg In 100 100 Sodium Chloride 0.9% 50 ml @ 100 mls/hr IVPB 2100 MARICRUZ Rx#:[id number] Other: # Voids 1 3 1 Weight 80.5 kg 06/24/17 08:03 06/24/17 08:03 - EKG Interpretation EKG: sinus rhythm, normal ST/T (No old ekg for comparison. Left axis deviation possibility of old infarct anterolateral. ) Assessment and Plan Plan: ASSESSMENT/PLAN 1. History of diastolic heart failure in the past. The patient shows no overt signs of heart failure at this time. BNP is within normal range with maintained left ventricular function. Although echocardiogram does show a mild pericardial effusion she has no hemodynamic compromise at this time. She has multiple comorbid conditions that could be contributing to her symptoms. Recommend follow-up on the pleural effusion. He will recommend her on oral Lasix rather than IV at this time since there is no signs of congestive heart failure. Thank you for this consultation. We will continue to see the patient on an as-needed basis. Nurse Practitioner note has been reviewed, I agree with a documented findings and plan of care. Patient was seen and examined.
[2017-06-24] MEDS: HYDROmorphone 1 MG/ML 1 ML SYRINGE IVP PRN ×2 (14:22→22:41)
[2017-06-24 15:23] LABS: Appearance,Urine Clear (Clear); Bilirubin,Urine Negative (Negative); Glucose,Urine (UA) Negative (Negative); Ketones,Urine Negative (Negative); Leukocyte Esterase,Urine Negative (Negative); Nitrite,Urine Negative (Negative); Protein,Urine Negative (Negative); Specific Gravity,Urine 1.006 (1.001-1.035); UA Billing (MACRO vs. MICRO) CHEM; Urobilinogen,Urine <2.0 mg/dL (<2.0)
[2017-06-24 15:53] LABS: Hepatitis B Surface Ag Index 0.05
[2017-06-24 15:59] LABS: Hepatitis B Core IgM Index 0.01
[2017-06-24 16:11] LABS: Hepatitis C Virus IgG Ab Negative (Negative); Hepatitis C Virus IgG Index 0.09
[2017-06-24] MEDS: FUROSEMIDE 40 MG TAB PO SCH (17:31)
--- NOTE | 2017-06-24 18:04 | P.GSCN ---
History of Present Illness Consult date: 06/24/17 Reason for Consult: Abdominal pain History of present illness: We were asked to see this patient for the complaints of abdominal pain. This patient has had pain increasing over the last several days. She had a recent urinary tract infection and was in the group home but readmitted because of constipation, diminished appetite, bloating, and abdominal pain. Abdominal pain is diffuse. No nausea or vomiting. No fevers. White blood cell count slightly elevated. CAT scan was performed which showed ascitic fluid. This was drained and was noted to be hazy in appearance. No organisms were seen. Her CA-125 is significantly elevated. No history of known malignancy. Review of Systems The patient denies any acute changes in vision or hearing, no dysphagia or odynophagia, no chest pain or shortness of breath, no dysuria or hematuria, no headache, no runny nose, no rectal bleeding or melena, no unexplained weight loss Past Medical History Past Medical History: COPD, Hyperlipidemia, Hypertension Additional Past Medical History / Comment(s): sepsis, CKD, UTI History of Any Multi-Drug Resistant Organisms: None Reported Past Surgical History: Orthopedic Surgery Additional Past Surgical History / Comment(s): EVELIN CATARACTS, PARTIAL HYSTERECTOMY, RT KNEE REPLACMENT Past Anesthesia/Blood Transfusion Reactions: No Reported Reaction Past Psychological History: Depression Smoking Status: Never smoker Past Alcohol Use History: None Reported Past Drug Use History: None Reported - Past Family History Brother(s) Family Medical History: Cancer Father Family Medical History: Cancer Additional Family Medical History / Comment(s): lung cancer and ? colon cancer Mother Family Medical History: CVA/TIA Medications and Allergies Home Medications Medication Instructions Recorded Confirmed Type Acetaminophen Tab [Tylenol Tab] 650 mg PO Q6H PRN 06/22/17 06/22/17 History Amino Acids/Protein Hydrolys 30 ml PO BID 06/22/17 06/22/17 History [Pro-Stat Supplement] Artificial Tears-Hypromellose 2 drops BOTH EYES BID PRN 06/22/17 06/22/17 History [Artificial Tear Drops] Aspirin EC [Ecotrin Low Dose] 81 mg PO HS 06/22/17 06/22/17 History Bisacodyl 10 mg RECTAL DAILY PRN 06/22/17 06/22/17 History Ciclopirox Olamine [Loprox 0.77% 1 applic TOPICAL BID 06/22/17 06/22/17 History cream] Citalopram Hydrobromide [CeleXA] 20 mg PO DAILY 06/22/17 06/22/17 History Ipratropium-Albuterol Nebulize 3 ml INHALATION RT-Q6H PRN 06/22/17 06/22/17 History [Duoneb 0.5 mg-3 mg/3 ml Soln] Latanoprost Ophth [Xalatan 0.005%] 1 drops BOTH EYES HS@199906/22/17 06/22/17 History Magnesium Hydroxide [Milk of 2,400 mg PO DAILY PRN 06/22/17 06/22/17 History Magnesia] Meclizine [Antivert] 12.5 mg PO Q8H PRN 06/22/17 06/22/17 History Omeprazole 20 mg PO DAILY 06/22/17 06/22/17 History Polyethylene Glycol 3350 [Miralax] 17 gm PO DAILY 06/22/17 06/22/17 History Sennosides [Senna] 8.6 mg PO HS@199906/22/17 06/22/17 History amLODIPine/ATORVASTATIN [Caduet 10 1 tab PO DAILY 06/22/17 06/22/17 History mg-10 mg Tablet] Allergies Allergy/AdvReac Type Severity Reaction Status Date / Time No Known Allergies Allergy Verified 06/22/17 17:22 Surgical - Exam Vital Signs Temp Pulse Resp BP Pulse Ox 97.1 F L 92 20 121/61 95 06/22/17 17:01 06/22/17 17:01 06/22/17 17:01 06/22/17 17:01 06/22/17 17:01 Physical exam: General: Well-developed, well-nourished HEENT: Normocephalic, sclerae nonicteric Abdomen: Outlet distended, mild to moderate diffuse tenderness, no palpable mass , no peritoneal signs Extremities: No edema Neuro: Alert and oriented Results - Labs 06/24/17 08:03 06/24/17 08:03 Abnormal Lab Results - Last 24 Hours (Table) 06/23/17 06/24/17 06/24/17 Range/Units 11:18 08:03 08:03 WBC 12.0 H (3.8-10.6) k/uL RBC 3.56 L (3.80-5.40) m/uL Hgb 10.1 L (11.4-16.0) gm/dL Hct 32.9 L (34.0-46.0) % MCHC 30.7 L (31.0-37.0) g/dL Plt Count 645 H (150-450) k/uL Sodium 135 L (137-145) mmol/L Carbon Dioxide 20 L (22-30) mmol/L BUN 55 H (7-17) mg/dL Creatinine 1.30 H (0.52-1.04) mg/dL Glucose 117 H (74-99) mg/dL Calcium 8.3 L (8.4-10.2) mg/dL Total Protein 5.8 L (6.3-8.2) g/dL Albumin 2.8 L (3.5-5.0) g/dL CA 125 Antigen 305.3 H (0.0-30.1) U/mL Microbiology - Last 24 Hours (Table) 06/22/17 21:10 Gram Stain - Preliminary Ascites Fluid Body Fluid Culture - Preliminary Diabetes panel 06/24/17 Range/Units 08:03 Sodium 135 L (137-145) mmol/L Potassium 5.1 (3.5-5.1) mmol/L Chloride 103 (98-107) mmol/L Carbon Dioxide 20 L (22-30) mmol/L BUN 55 H (7-17) mg/dL Creatinine 1.30 H (0.52-1.04) mg/dL Glucose 117 H (74-99) mg/dL Calcium 8.3 L (8.4-10.2) mg/dL AST 29 (14-36) U/L ALT 32 (9-52) U/L Alkaline Phosphatase 97 (38-126) U/L Total Protein 5.8 L (6.3-8.2) g/dL Albumin 2.8 L (3.5-5.0) g/dL Calcium panel 06/24/17 Range/Units 08:03 Calcium 8.3 L (8.4-10.2) mg/dL Albumin 2.8 L (3.5-5.0) g/dL Pituitary panel 06/24/17 Range/Units 08:03 Sodium 135 L (137-145) mmol/L Potassium 5.1 (3.5-5.1) mmol/L Chloride 103 (98-107) mmol/L Carbon Dioxide 20 L (22-30) mmol/L BUN 55 H (7-17) mg/dL Creatinine 1.30 H (0.52-1.04) mg/dL Glucose 117 H (74-99) mg/dL Calcium 8.3 L (8.4-10.2) mg/dL Adrenal panel 06/24/17 Range/Units 08:03 Sodium 135 L (137-145) mmol/L Potassium 5.1 (3.5-5.1) mmol/L Chloride 103 (98-107) mmol/L Carbon Dioxide 20 L (22-30) mmol/L BUN 55 H (7-17) mg/dL Creatinine 1.30 H (0.52-1.04) mg/dL Glucose 117 H (74-99) mg/dL Calcium 8.3 L (8.4-10.2) mg/dL Total Bilirubin 0.9 (0.2-1.3) mg/dL AST 29 (14-36) U/L ALT 32 (9-52) U/L Alkaline Phosphatase 97 (38-126) U/L Total Protein 5.8 L (6.3-8.2) g/dL Albumin 2.8 L (3.5-5.0) g/dL Assessment and Plan (1) Abdominal pain Narrative/Plan: Patient abdominal pain and new onset ascites. 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 Await cytology from recent diagnosis paracentesis. Continue diet. We'll follow with you. Status: Acute
--- NOTE | 2017-06-24 18:05 | P.PN ---
Subjective This is a patient well known to me from the office. She was discharged from [facility] to [facility] for Rehab and care as no bed was available locally. She is not a pateint ordinarily here at [facility]. Because of this she was mistakenly admitted to the hospitalist. As her Primary care, her care was transferred back to [facility]. From the record, she is having more abdominal pain. This is fairly new forhe, but she did metnion some mild discomfort on D/C from [facility]. She was there for encephalopathy and UTI. She has a known Hx of CHF. She has never had ascities or conditions associated with it. peritoneal tap is pending. GI and Cardiology consults pending. Evidence of Cirrhosis on CT. She is confused today, and not her normal self. She is not answering my questions. Objective - Vital Signs Vital signs: Vital Signs Temp 99.7 F H 06/24/17 15:00 Pulse 95 06/24/17 15:00 Resp 20 06/24/17 15:00 BP 101/59 06/24/17 15:00 Pulse Ox 92 L 06/24/17 15:00 Intake & Output 06/23/17 06/24/17 06/24/17 18:59 06:59 18:59 Intake Total 300 Balance 300 Weight 85.5 kg 80.5 kg Intake: Intake, IV Titration 300 Amount Sodium Chloride 0.9% 1, 100 000 ml @ 100 mls/hr IV . Q10H STA Rx#:[id number] cefTRIAXone 1,000 mg In 200 Sodium Chloride 0.9% 50 ml @ 100 mls/hr IVPB 2100 [facility] Rx#:[id number] Other: # Voids 1 3 3 - Constitutional General appearance: Present: average body habitus - EENT Eyes: Present: EOMI, PERRLA - Neck Thyroid: bilateral: normal size - Respiratory Respiratory: bilateral: diminished - Cardiovascular Rhythm: regular Heart sounds: normal: S1, S2 Abnormal Heart Sounds: Absent: systolic murmur - Gastrointestinal General gastrointestinal: Present: tenderness Localized gastrointestinal: tender: LUQ, LLQ (generalized distention) - Neurologic Neurologic: Present: CNII-XII intact. Absent: focal deficits - Psychiatric Psychiatric: Absent: A&O x's 3 (she is confused/somnolement) - Labs CBC & Chem 7: 06/24/17 08:03 08/11/17 08:03 Labs: Abnormal Lab Results - Last 24 Hours (Table) 06/23/17 06/24/17 06/24/17 Range/Units 11:18 08:03 08:03 WBC 12.0 H (3.8-10.6) k/uL RBC 3.56 L (3.80-5.40) m/uL Hgb 10.1 L (11.4-16.0) gm/dL Hct 32.9 L (34.0-46.0) % MCHC 30.7 L (31.0-37.0) g/dL Plt Count 645 H (150-450) k/uL Sodium 135 L (137-145) mmol/L Carbon Dioxide 20 L (22-30) mmol/L BUN 55 H (7-17) mg/dL Creatinine 1.30 H (0.52-1.04) mg/dL Glucose 117 H (74-99) mg/dL Calcium 8.3 L (8.4-10.2) mg/dL Total Protein 5.8 L (6.3-8.2) g/dL Albumin 2.8 L (3.5-5.0) g/dL CA 125 Antigen 305.3 H (0.0-30.1) U/mL Microbiology - Last 24 Hours (Table) 06/22/17 21:10 Gram Stain - Preliminary Ascites Fluid Body Fluid Culture - Preliminary Assessment and Plan Plan: ascites: most likely due to Cirhosis, New onset with no prior HX. hepatitis panel negative, GI on consult O2 dependent COPD: continue O2, add duoneb updrafts as needed and guafensin Hypertension: cont amlodipine Hyperlipidemia: cont atorvastatin CHF/unspecified: 2decho, consult cardiology, lasix and Kcl abn ca125: no evidence of ovarian abnormalities on CT wait on testing, check ammonia level
[2017-06-24] MEDS: LATANOPROST 0.005% OPHTH DROPS 2.5 ML BTL BOTH EYES SCH (20:18)
[2017-06-24] MEDS: ASPIRIN 81 MG CHEW PO SCH (20:18)
[2017-06-24] MEDS: SENNOSIDES 8.6 MG TAB PO SCH (20:19)
[2017-06-25 07:46] LABS: Basophils % (A) 0 %; CH 28.1; CHCM 30.7; Eosinophils # (A) 0.4 k/uL (0-0.7); Eosinophils % (A) 4 %; HCT 32.1 % (34.0-46.0); HDW 2.83; HGB 9.8 gm/dL (11.4-16.0); Hypochromasia Moderate; Luc # (Auto) 0.11; Luc % (Auto) 1; Lymphocytes # (A) 0.7 k/uL (1.0-4.8); Lymphocytes % (A) 6 %; MCH 28.1 pg (25.0-35.0); MCHC 30.6 g/dL (31.0-37.0); MCV 91.7 fL (80.0-100.0); Mean Platelet Volume 6.8; Monocytes # (A) 0.7 k/uL (0-1.0); Monocytes % (A) 7 %; Neutrophils # (A) 8.4 k/uL (1.3-7.7); Neutrophils % (A) 82 %; WBC 10.3 k/uL (3.8-10.6); WBC (Perox) 10.57
[2017-06-25] MEDS: POLYETHYLENE GLYCOL 3350 17 GM POWD.PACK PO SCH (07:56)
[2017-06-25] MEDS: FUROSEMIDE 40 MG TAB PO SCH (07:56)
[2017-06-25] MEDS: PANTOPRAZOLE 40 MG/10 ML VIAL IV SCH (07:56)
[2017-06-25] MEDS: CLOTRIMAZOLE 1% CREAM 15 GM TUBE TOPICAL SCH ×2 (07:56→19:38)
[2017-06-25] MEDS: CITALOPRAM HYDROBROMIDE 20 MG TAB PO SCH (07:57)
[2017-06-25] MEDS: HYDROcodone/APAP 5-325MG 1 EACH TAB PO PRN (08:04)
[2017-06-25 08:06] LABS: Calcium 8.3 mg/dL (8.4-10.2); Magnesium 2.1 mg/dL (1.6-2.3); Potassium 4.3 mmol/L (3.5-5.1); Total Bilirubin 0.2 mg/dL (0.2-1.3); Total Protein 5.2 g/dL (6.3-8.2)
[2017-06-25] MEDS ORDERED: FUROSEMIDE 10 MG/ML 2 ML VIAL IV STA (08:32)
--- NOTE | 2017-06-25 09:01 | P.PN ---
Subjective This is a patient well known to me from the office. She was discharged from [facility] to [facility] for Rehab and care as no bed was available locally. She is not a pateint ordinarily here at [facility]. Because of this she was mistakenly admitted to the hospitalist. As her Primary care, her care was transferred back to [facility]. From the record, she is having more abdominal pain. This is fairly new forhe, but she did metnion some mild discomfort on D/C from [facility]. She was there for encephalopathy and UTI. She has a known Hx of CHF. She has never had ascities or conditions associated with it. peritoneal tap is pending. GI and Cardiology consults pending. Evidence of Cirrhosis on CT. She is confused today, and not her normal self. She is not answering my questions. 06/25/2017: Patient is in pain. She is confused and only oriented to self. She recognizes me. Her abdomen is distended this time. She's currently on Lasix 40 orally twice a day and her ammonia level is normal. An ultrasound of the pelvis is pending to evaluate ovarian structures. I off are unsure how much peritoneal fluid was drawn off and we'll investigate. She may need another. tap. I will have them discuss this with Dr. Pete. Objective - Vital Signs Vital signs: Vital Signs Temp 97.0 F L 06/25/17 07:00 Pulse 91 06/25/17 07:00 Resp 14 06/25/17 07:00 BP 92/63 06/25/17 07:00 Pulse Ox 93 L 06/25/17 07:00 Intake & Output 06/24/17 06/25/17 06/25/17 18:59 06:59 18:59 Output Total 290 Balance -290 Weight 81.5 kg Output: Urine 290 Straight 290 Other: Voiding Method Bedside Commode Bedpan # Voids 3 1 - Exam General: The patient is somnolent and moaning in pain Neck: The neck is supple, there is no thyromegaly, lymphadenopathy, tenderness or JVD. Cardiovascular: S1S2 is normal, There is a regular rate and rhythm. No murmur, rub or gallop is appreciated. Respiratory: Lungs are coarse to auscultation bilaterally, respirations are non-labored, breath sounds are equal. Gastrointestinal: Rigid, distended, painful to palpation in all quadrants today. Musculoskeletal:There is +1pedal edema. There is no calf tenderness or swelling. No cords were appreciated. Neurological: Alert but arousable, moaning with pain, she is oriented 1. Skin: Skin is warm and dry and no rashes or lesions are noted. - Labs CBC & Chem 7: 06/25/17 07:26 06/25/17 07:26 Labs: Abnormal Lab Results - Last 24 Hours (Table) 06/24/17 06/24/17 06/25/17 Range/Units 08:03 08:03 07:26 WBC 12.0 H (3.8-10.6) k/uL RBC 3.56 L 3.50 L (3.80-5.40) m/uL Hgb 10.1 L 9.8 L (11.4-16.0) gm/dL Hct 32.9 L 32.1 L (34.0-46.0) % MCHC 30.7 L 30.6 L (31.0-37.0) g/dL Plt Count 645 H 539 H (150-450) k/uL Neutrophils # 8.4 H (1.3-7.7) k/uL Lymphocytes # 0.7 L (1.0-4.8) k/uL Sodium 135 L (137-145) mmol/L Carbon Dioxide 20 L (22-30) mmol/L BUN 55 H (7-17) mg/dL Creatinine 1.30 H (0.52-1.04) mg/dL Glucose 117 H (74-99) mg/dL Calcium 8.3 L (8.4-10.2) mg/dL Total Protein 5.8 L (6.3-8.2) g/dL Albumin 2.8 L (3.5-5.0) g/dL 06/25/17 Range/Units 07:26 WBC (3.8-10.6) k/uL RBC (3.80-5.40) m/uL Hgb (11.4-16.0) gm/dL Hct (34.0-46.0) % MCHC (31.0-37.0) g/dL Plt Count (150-450) k/uL Neutrophils # (1.3-7.7) k/uL Lymphocytes # (1.0-4.8) k/uL Sodium 134 L (137-145) mmol/L Carbon Dioxide 19 L (22-30) mmol/L BUN 57 H (7-17) mg/dL Creatinine 1.55 H (0.52-1.04) mg/dL Glucose 114 H (74-99) mg/dL Calcium 8.3 L (8.4-10.2) mg/dL Total Protein 5.2 L (6.3-8.2) g/dL Albumin 2.6 L (3.5-5.0) g/dL Microbiology - Last 24 Hours (Table) 06/24/17 14:50 Urine Culture - Preliminary Urine,Clean Catch 06/22/17 21:10 Gram Stain - Preliminary Ascites Fluid Body Fluid Culture - Preliminary Assessment and Plan Plan: ascites: most likely due to Cirhosis, New onset with no prior HX. hepatitis panel negative, GI on consult another peritoneal tap may be needed, I'll increase her Lasix to 60 IV push every 12, I'll discontinue Maud and increase her Dilaudid to 0.5-1 mg every 3 hours as needed for pain. Ammonia levels have been normal. O2 dependent COPD: continue O2, add duoneb updrafts as needed and guafensin Hypertension: cont amlodipine Hyperlipidemia: cont atorvastatin CHF/unspecified: 2decho, consult cardiology, lasix and Kcl abn ca125: no evidence of ovarian abnormalities on CT ultrasound of the pelvis pending Wait on consultation recommendations, we'll change her pain medications, increase her Lasix, add a small dose of Aldactone, Hospice may be a consideration
--- NOTE | 2017-06-25 09:33 | US ---
EXAMINATION TYPE: US pelvic complete DATE OF EXAM: 06/25/2017 COMPARISON: CT 06/22/2017 CLINICAL HISTORY: 87-year-old female with ascites, abnormal ovarian tests. TECHNIQUE: Transabdominal (TA) Date of LMP: post menopausal, pt is 87 years old FINDINGS: RN RENAL NOTES: exam done portable, patient very uncomfortable. Ovaries or adnexal masses not iden tified. Neither the uterus or ovaries could be identified. There is moderate pelvic ascites extending through both adnexa. IMPRESSION: 1. Portable exam. Moderate pelvic ascites. 2. The uterus and ovaries could not be visualized.
[2017-06-25] MEDS: HYDROmorphone 1 MG/ML 1 ML SYRINGE IM PRN ×2 (09:40→12:32)
[2017-06-25] MEDS: FUROSEMIDE 10 MG/ML 10 ML VIAL IV SCH ×2 (10:11→19:37)
[2017-06-25] MEDS: SPIRONOLACTONE 25 MG TAB PO SCH (10:31)
--- NOTE | 2017-06-25 11:29 | P.PN ---
Progress Note - Text The patient is resting in her bed. She has some plaints of abdominal pain. She is receiving Dilaudid. On exam her vital signs appear stable. Her abdomen is distended. There is some mild tenderness throughout. There is no rebound or guarding. Ascites from most likely metastatic ovarian cancer. Patient will undergo therapeutic paracentesis
[2017-06-25] MEDS: ASPIRIN 81 MG CHEW PO SCH (19:37)
[2017-06-25] MEDS: LATANOPROST 0.005% OPHTH DROPS 2.5 ML BTL BOTH EYES SCH (19:37)
[2017-06-25] MEDS: SENNOSIDES 8.6 MG TAB PO SCH (21:17)
[2017-06-26] MEDS: HYDROmorphone 1 MG/ML 1 ML SYRINGE IM PRN ×2 (04:10→17:48)
[2017-06-26] MEDS: PANTOPRAZOLE 40 MG TABLET PO SCH (08:07)
[2017-06-26] MEDS: POLYETHYLENE GLYCOL 3350 17 GM POWD.PACK PO SCH (08:07)
[2017-06-26] MEDS: FUROSEMIDE 10 MG/ML 10 ML VIAL IV SCH ×2 (08:07→22:13)
[2017-06-26] MEDS: CITALOPRAM HYDROBROMIDE 20 MG TAB PO SCH (08:08)
[2017-06-26] MEDS: SPIRONOLACTONE 25 MG TAB PO SCH (08:08)
[2017-06-26] MEDS: CLOTRIMAZOLE 1% CREAM 15 GM TUBE TOPICAL SCH ×2 (08:15→22:12)
[2017-06-26 08:32] LABS: Calcium 8.1 mg/dL (8.4-10.2); Potassium 4.6 mmol/L (3.5-5.1)
--- NOTE | 2017-06-26 08:48 | P.PN ---
Subjective This is a patient well known to me from the office. She was discharged from [facility] to [facility] for Rehab and care as no bed was available locally. She is not a pateint ordinarily here at [facility]. Because of this she was mistakenly admitted to the hospitalist. As her Primary care, her care was transferred back to [place]. From the record, she is having more abdominal pain. This is fairly new forhe, but she did metnion some mild discomfort on D/C from [facility]. She was there for encephalopathy and UTI. She has a known Hx of CHF. She has never had ascities or conditions associated with it. peritoneal tap is pending. GI and Cardiology consults pending. Evidence of Cirrhosis on CT. She is confused today, and not her normal self. She is not answering my questions. 06/25/2017: Patient is in pain. She is confused and only oriented to self. She recognizes me. Her abdomen is distended this time. She's currently on Lasix 40 orally twice a day and her ammonia level is normal. An ultrasound of the pelvis is pending to evaluate ovarian structures. I off are unsure how much peritoneal fluid was drawn off and we'll investigate. She may need another. tap. I will have them discuss this with Dr. Pete. 2016: Nursing confirmed only a diagnostic tap was performed. The ultrasound was nondiagnostic due to ascites. She will be scheduled for a therapeutic paracentesis tomorrow morning. Surgery believes there may be underlying ovarian carcinoma based on an abnormal CEA 125. I will ask gynecology to evaluate her. Her liver function tests remained stable. Continuing Sulligent and increasing her Dilaudid seemed to help with her pain and mentation. He is somnolent but oriented 2 today. Objective - Vital Signs Vital signs: Vital Signs Temp 97.2 F L 06/26/17 07:00 Pulse 101 H 06/26/17 07:00 Resp 14 06/26/17 07:00 BP 99/62 06/26/17 07:00 Pulse Ox 91 L 06/26/17 07:00 Intake & Output 06/25/17 06/26/17 06/26/17 18:59 06:59 18:59 Intake Total 150 Output Total 600 690 Balance -600 -540 Weight 81.5 kg Intake: Intake, IV Titration 100 Amount cefTRIAXone 1,000 mg In 100 Sodium Chloride 0.9% 50 ml @ 100 mls/hr IVPB 2100 [facility] Rx#:[id number] Oral 50 Output: Urine 300 390 Straight 300 390 Stool 300 300 Other: Voiding Method Bedpan Bedpan - Exam General: The patient is somnolent, but less moaning, she is more alert Neck: The neck is supple, there is no thyromegaly, lymphadenopathy, tenderness or JVD. Cardiovascular: S1S2 is normal, There is a regular rate and rhythm. No murmur, rub or gallop is appreciated. Respiratory: Lungs are coarse to auscultation bilaterally, respirations are non-labored, breath sounds are equal. Gastrointestinal: Rigid, distended, painful to palpation in all quadrants today. Musculoskeletal:There is +1pedal edema. There is no calf tenderness or swelling. No cords were appreciated. Neurological: Awake , she is oriented 2. Skin: Skin is warm and dry and no rashes or lesions are noted. 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 New onset with no prior HX. hepatitis panel negative, GI on consult I'll continue her Lasix to 60 IV push every 12, Dilaudid to 0.5-1 mg every 3 hours as needed for pain. therapeutic paracentesis in the a.m.Ammonia levels have been normal. Cytology is pending. O2 dependent COPD: continue O2, add duoneb updrafts as needed and guafensin Hypertension: cont amlodipine Hyperlipidemia: cont atorvastatin Diastolic CHF:cardiology, lasix and Kcl abnormal ca125: no evidence of ovarian abnormalities on CT, ultrasound nondiagnostic, I will ask Gynecology to see her depending on cytology results Wait on consultation recommendations, we'll change her pain medications, increase her Lasix, add a small dose of Aldactone, Hospice may be a consideration
--- NOTE | 2017-06-26 12:11 | P.PN ---
Progress Note - Text Patient remained stable. She is evaluated by oncology and COMMUNITY ORGANIZATION DIRECTOR today. Apparently she is scheduled for a ultrasound guided paracentesis tomorrow. No general surgical intervention is planned.
--- NOTE | 2017-06-26 14:43 | P.PN ---
Progress Note - Text The patient is an 87-year old female who was admitted to the hospital for abdominal pain and new onset of ascites. Patient was recently hospitalized at [facility] for pain and constipation, encephalopathy and UTI. She has a known Hx of CHF. She has never had ascities or conditions associated with it. Patient had a diagnostic paracentesis in the ER. Cytology pending. We were asked to see for possible liver disease. The patient continues to be weak and feeding poorly. Had elevated CA-125. US of pelvis no ovarian mass noted. 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 Patient having US guided paracentesis tomorrow. Will continue to follow, further plans based on her course.
[2017-06-26] MEDS: SENNOSIDES 8.6 MG TAB PO SCH (22:06)
[2017-06-26] MEDS: LATANOPROST 0.005% OPHTH DROPS 2.5 ML BTL BOTH EYES SCH (22:06)
[2017-06-26] MEDS: ASPIRIN 81 MG CHEW PO SCH (22:06)
[2017-06-27 08:14] LABS: Basophils # (A) 0.1 k/uL (0-0.2); Basophils % (A) 0 %; CH 28.2; CHCM 31.4; Eosinophils # (A) 0.3 k/uL (0-0.7); Eosinophils % (A) 2 %; HCT 31.2 % (34.0-46.0); HDW 2.88; HGB 9.5 gm/dL (11.4-16.0); Hypochromasia Slight; Luc # (Auto) 0.13; Luc % (Auto) 1; Lymphocytes # (A) 0.6 k/uL (1.0-4.8); Lymphocytes % (A) 5 %; MCH 27.6 pg (25.0-35.0); MCHC 30.6 g/dL (31.0-37.0); MCV 90.2 fL (80.0-100.0); Mean Platelet Volume 7.1; Monocytes # (A) 0.6 k/uL (0-1.0); Monocytes % (A) 5 %; Neutrophils # (A) 10.6 k/uL (1.3-7.7); Neutrophils % (A) 87 %; RBC 3.45 m/uL (3.80-5.40); RDW 14.2 % (11.5-15.5); WBC 12.2 k/uL (3.8-10.6); WBC (Perox) 12.86
[2017-06-27 08:24] LABS: Calcium 8.4 mg/dL (8.4-10.2); Potassium 4.4 mmol/L (3.5-5.1); Total Bilirubin 0.2 mg/dL (0.2-1.3); Total Protein 5.3 g/dL (6.3-8.2)
[2017-06-27 09:05] LABS: Magnesium 2.1 mg/dL (1.6-2.3)
[2017-06-27] MEDS: CITALOPRAM HYDROBROMIDE 20 MG TAB PO SCH (09:57)
[2017-06-27] MEDS: FUROSEMIDE 10 MG/ML 10 ML VIAL IV SCH ×2 (09:57→20:40)
[2017-06-27] MEDS: SPIRONOLACTONE 25 MG TAB PO SCH (09:57)
[2017-06-27] MEDS: PANTOPRAZOLE 40 MG TABLET PO SCH (09:57)
[2017-06-27] MEDS: POLYETHYLENE GLYCOL 3350 17 GM POWD.PACK PO SCH (09:57)
[2017-06-27] MEDS: CLOTRIMAZOLE 1% CREAM 15 GM TUBE TOPICAL SCH ×2 (09:58→20:41)
[2017-06-27] MEDS: ONDANSETRON 4 MG/2 ML VIAL IVP PRN (10:16)
[2017-06-27] MEDS: HYDROmorphone 1 MG/ML 1 ML SYRINGE IM PRN (10:16)
--- NOTE | 2017-06-27 13:50 | US ---
EXAMINATION TYPE: US paracentesis abd w/image DATE OF EXAM: 06/27/2017 COMPARISON: NONE HISTORY: Ascites. PROCEDURE: Maximal barrier technique was utilized. The skin overlying a suitable pocket of fluid was localized with ultrasound and the overlying skin was prepped and draped. Ultrasound was utilized with sterile technique. Lidocaine was used for local anesthesia and a skin gene made with a scalpel. Catheter was advanced under direct ultrasound guidance into a suitable pocket of fluid and approximately 4 liters of serous fluid were removed. Catheter was withdrawn and hemostasis achieved. There is no immediate complication; the patient is discharged in stable condition. IMPRESSION: STATUS POST ULTRASOUND GUIDED PARACENTESIS FOR PALLIATION OF ASCITES. THIS PROCEDURE WA S PERFORMED BY THE UNDERSIGNED.
--- NOTE | 2017-06-27 14:44 | CDI ---
In responding to this query, please exercise your independent professional judgment. The [facility] Coding Staff and Clinical Documentation Specialists appreciate your assistance in clarifying documentation, maintaining compliance with coding guidelines, accurately documenting patients condition and capturing severity of illness. The fact that a question is asked does not imply that any particular answer is desired or expected. Communication forms are a method of clarifying documentation and are not made part of the Legal Health Record. Thank you in advance for your clarification. Last Revision, January 2016 Bear Whitman [address] [facility] [place] [address] Documentation Clarification Form Date: 06/27/2017 2:20:00 PM From: Mali Mcadams Admit Date: 06/22/2017 9:13:00 PM Patient Name: Samantha Lomeli Visit Number: [id number] Discharge Date: Dr. Tab Graham/Dr Priyank Hernandez DO Altered mental status/ confused was documented in the progress note on 06/24/17 and continue in ongoing notes. Patient history/risk factors: UTI, encephalopathy, COPD, Diastolic CHF, Hypertension Clinical Indicators: Confused, not answering any questions Vital signs: 121/61 92 20 97.1 Labs: WBC 12.0, NA+ 135, BUN 55, CR 1.30, BNP 928, Total Protein 5.8, Albumin 2.8 CA 125 3.5.3, UA-Negative Chest x-ray: consider CHF exacerbation as there is cardiomegaly with new small bilateral pleural effusion Treatment: Neurological assessment per protocol Monitor Labs Rocephin IV In your professional opinion, please clarify the etiology of the altered mental status, if known. Encephalopathy (specify Type: Metabolic, Toxic, Hepatic, Other, and Underlying Medical Illness) Dementia (if know, specify Type and if with/without Behavioral Disturbance) Other condition (please specify) Unable to determine Please document in your progress notes and discharge summary in order to capture severity of illness and risk of mortality. Include clinical findings that support your diagnosis. FYI: Press F11 to launch patient chart. MTDJim
--- NOTE | 2017-06-27 15:04 | CDI ---
In responding to this query, please exercise your independent professional judgment. The [facility] Coding Staff and Clinical Documentation Specialists appreciate your assistance in clarifying documentation, maintaining compliance with coding guidelines, accurately documenting patients condition and capturing severity of illness. The fact that a question is asked does not imply that any particular answer is desired or expected. Communication forms are a method of clarifying documentation and are not made part of the Legal Health Record. Thank you in advance for your clarification. Last Revision, January [address] [place] [address] Documentation Clarification Form Date: 06/27/2017 2:45:00 PM From: Mali Abbe Admit Date: 06/22/2017 9:13:00 PM Patient Name: Samantha Lomeli Visit Number: [id number] Discharge Date: Dr. Tab Graham/Dr. Priyank Hernandez Diastolic CHF is documented in your progress notes. History/Risk Factors: Diastolic CHF, Hypertension, COPD, Clinical Indicators: She states that she has been short of breath. She is currently on oxygen. She has normal lung sounds bilaterally. VS/Pulse OX: 121/61 92 20 97.1, 95 % @/L NC BNP: 1290, 928 Echocardiogram Results: EF 50-55 % Chest X Ray: Consider CHF exacerbation Treatment: IV Lasix Monitor CXR Aldactone PO Duoneb's per orders Consults: Cardiology: History of diastolic heart failure in the past. No overt signs of heart failure at this time In your professional opinion, can you please clarify the acuity of CHF if known? Diastolic Heart Failure: Acute Chronic Acute on Chronic Unable to determine Other, please specify Please document in your progress notes and discharge summary in order to capture severity of illness and risk of mortality. Include clinical findings that support your diagnosis. FYI: Press F11 to launch patient chart. FRANKIE
[2017-06-27 17:18] LABS: Glucose,Whole Blood 180 mg/dL (75-99)
--- NOTE | 2017-06-27 17:57 | P.PN ---
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 Patient was recently hospitalized at [facility] for pain because patient encephalopathy and urinary tract infection she was discharged to [facility] patient had diagnostic paracentesis in the ER. Cytology is pending. Patient also had a CA-125 which was elevated approximately 308 Objective - Vital Signs Vital signs: Vital Signs Temp 97.4 F L 06/27/17 15:00 Pulse 95 06/27/17 15:00 Resp 16 06/27/17 15:00 BP 100/47 06/27/17 15:00 Pulse Ox 92 L 06/27/17 15:00 Intake & Output 06/26/17 06/27/17 06/27/17 18:59 06:59 18:59 Intake Total 50 Output Total 250 400 Balance -200 -400 Weight 82 kg Intake: Intake, IV Titration 50 Amount cefTRIAXone 1,000 mg In 50 Sodium Chloride 0.9% 50 ml @ 100 mls/hr IVPB 2100 [facility] Rx#:[id number] Output: Urine 250 400 Other: Voiding Method Indwelling Catheter Indwelling Catheter Indwelling Catheter # Bowel Movements 0 0 - Exam General: [Patient awake, alert and oriented times 3. Patient in no acute distress.] HEENT: [PERRL. EOMI. No pharyngeal erythema or exudate.] Neck: [No adenopathy.] Cardiac: [Heart regular in rate and rhythm. No S3. No S4. No clicks, rubs. No murmur.] Lungs: [Clear to auscultation bilaterally.] Abdomen: [No mass. No organomegaly. Bowel sounds presnt and normoactive in all 4 quadrants.] Distended Extremes: [No edema no cyanosis no claudication normal pulses] : [] Musculoskeletal: [No joint erythema, edema or tenderness.] Skin: [No rash.] Neurologic: [No lateralizing deficits. CN II - XII grossly intact.] Lymphatic: [No adenopathy.] - Labs CBC & Chem 7: 06/27/17 07:54 06/27/17 07:54 Labs: Abnormal Lab Results - Last 24 Hours (Table) 06/27/17 06/27/17 06/27/17 Range/Units 07:54 07:54 17:11 WBC 12.2 H (3.8-10.6) k/uL RBC 3.45 L (3.80-5.40) m/uL Hgb 9.5 L (11.4-16.0) gm/dL Hct 31.2 L (34.0-46.0) % MCHC 30.6 L (31.0-37.0) g/dL Plt Count 544 H (150-450) k/uL Neutrophils # 10.6 H (1.3-7.7) k/uL Lymphocytes # 0.6 L (1.0-4.8) k/uL Sodium 136 L (137-145) mmol/L BUN 67 H (7-17) mg/dL Creatinine 2.04 H (0.52-1.04) mg/dL Glucose 122 H (74-99) mg/dL POC Glucose (mg/dL) 180 H (75-99) mg/dL Total Protein 5.3 L (6.3-8.2) g/dL Albumin 2.6 L (3.5-5.0) g/dL Microbiology - Last 24 Hours (Table) 06/24/17 14:50 Urine Culture - Final Urine,Clean Catch Staphylococcus haemolyticus 06/22/17 21:10 Gram Stain - Final Ascites Fluid Body Fluid Culture - Final Assessment and Plan Plan: Assessment and plan Ascites Paracentesis has been performed with cytology pending O2 dependent COPD Hypertension currently controlled on amlodipine Hyperlipidemia patient's currently on atorvastatin Diastolic CHF currently utilizing Lasix and potassium Abnormal CEA 125 no evidence of ovarian abnormalities on CT ultrasound none diagnostic Time with Patient: Greater than 30
--- NOTE | 2017-06-27 18:01 | P.PN ---
Subjective Principal diagnosis: Abdominal pain Patient says her pain is improved. 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 No nausea or vomiting. Appetite is diminished. Objective - Vital Signs Vital signs: Vital Signs Temp 97.4 F L 06/27/17 15:00 Pulse 95 06/27/17 15:00 Resp 16 06/27/17 15:00 BP 100/47 06/27/17 15:00 Pulse Ox 92 L 06/27/17 15:00 Intake & Output 06/26/17 06/27/17 06/27/17 18:59 06:59 18:59 Intake Total 50 Output Total 250 400 Balance -200 -400 Weight 82 kg Intake: Intake, IV Titration 50 Amount cefTRIAXone 1,000 mg In 50 Sodium Chloride 0.9% 50 ml @ 100 mls/hr IVPB 2100 [facility] Rx#:[id number] Output: Urine 250 400 Other: Voiding Method Indwelling Catheter Indwelling Catheter Indwelling Catheter # Bowel Movements 0 0 - Exam Abdomen: Soft, slight distention, mild tenderness - Labs CBC & Chem 7: 06/27/17 07:54 06/27/17 07:54 Labs: Abnormal Lab Results - Last 24 Hours (Table) 06/27/17 06/27/17 06/27/17 Range/Units 07:54 07:54 17:11 WBC 12.2 H (3.8-10.6) k/uL RBC 3.45 L (3.80-5.40) m/uL Hgb 9.5 L (11.4-16.0) gm/dL Hct 31.2 L (34.0-46.0) % MCHC 30.6 L (31.0-37.0) g/dL Plt Count 544 H (150-450) k/uL Neutrophils # 10.6 H (1.3-7.7) k/uL Lymphocytes # 0.6 L (1.0-4.8) k/uL Sodium 136 L (137-145) mmol/L BUN 67 H (7-17) mg/dL Creatinine 2.04 H (0.52-1.04) mg/dL Glucose 122 H (74-99) mg/dL POC Glucose (mg/dL) 180 H (75-99) mg/dL Total Protein 5.3 L (6.3-8.2) g/dL Albumin 2.6 L (3.5-5.0) g/dL Microbiology - Last 24 Hours (Table) 06/24/17 14:50 Urine Culture - Final Urine,Clean Catch Staphylococcus haemolyticus 06/22/17 21:10 Gram Stain - Final Ascites Fluid Body Fluid Culture - Final Assessment and Plan (1) Abdominal pain Narrative/Plan: Await gynecologic evaluation. No general surgical intervention planned. We'll sign off at this point. Please contact if needed. Status: Acute
[2017-06-27] MEDS: SENNOSIDES 8.6 MG TAB PO SCH (20:41)
[2017-06-27] MEDS: LATANOPROST 0.005% OPHTH DROPS 2.5 ML BTL BOTH EYES SCH (20:41)
[2017-06-27] MEDS: ASPIRIN 81 MG CHEW PO SCH (20:41)
[2017-06-28] MEDS: SPIRONOLACTONE 25 MG TAB PO SCH (08:30)
[2017-06-28] MEDS: PANTOPRAZOLE 40 MG TABLET PO SCH (08:30)
[2017-06-28] MEDS: POLYETHYLENE GLYCOL 3350 17 GM POWD.PACK PO SCH (08:31)
[2017-06-28] MEDS: CLOTRIMAZOLE 1% CREAM 15 GM TUBE TOPICAL SCH ×2 (08:31→20:39)
[2017-06-28] MEDS: CITALOPRAM HYDROBROMIDE 20 MG TAB PO SCH (08:31)
[2017-06-28] MEDS: FUROSEMIDE 10 MG/ML 10 ML VIAL IV SCH ×2 (08:31→20:39)
[2017-06-28] MEDS: HYDROmorphone 1 MG/ML 1 ML SYRINGE IM PRN ×2 (11:51→20:44)
[2017-06-28 15:10] VITALS: BMI 29.3
--- NOTE | 2017-06-28 18:19 | P.OBCN ---
History of Present Illness Consult date: 06/28/17 Reason for consult: pelvic pain (Abdominal pain and positive cytology.) Chief complaint: Abdominal pain History of present illness: This patient is a pleasant 87-year-old 2 para 2 female who is admitted on the from [facility] for evaluation of abdominal pain. Patient states that she has had this pain on and off for a little while now however became worse recently. Patient was transferred by EMS to the emergency department for evaluation and evaluation has demonstrated ascites and positive peritoneal cytology for non-mucinous ovarian carcinoma. Imaging here has shown a CAT scan with some thickening of the small bowel loops on the left side and a moderate amount of abdominal and pelvic ascites with some nodularity of the abdominal mesentery. There is also a suggestion of omental caking. Ultrasound confirms ascites and the uterus and ovaries could not be visualized. She reports a "partial hysterectomy" and the very remote past for benign reasons. Does have multiple other medical problems including COPD and coronary artery disease with hypertension. Review of Systems Constitutional: Reports as per HPI Gastrointestinal: Reports bloating, Reports change in bowel habits Genitourinary: Reports as per HPI Past Medical History Past Medical History: COPD, Hyperlipidemia, Hypertension Additional Past Medical History / Comment(s): sepsis, CKD, UTI History of Any Multi-Drug Resistant Organisms: None Reported Past Surgical History: Orthopedic Surgery Additional Past Surgical History / Comment(s): EVELIN CATARACTS, PARTIAL HYSTERECTOMY, RT KNEE REPLACMENT Past Anesthesia/Blood Transfusion Reactions: No Reported Reaction Past Psychological History: Depression Smoking Status: Never smoker Past Alcohol Use History: None Reported Past Drug Use History: None Reported - Past Family History Brother(s) Family Medical History: Cancer Father Family Medical History: Cancer Additional Family Medical History / Comment(s): lung cancer and ? colon cancer Mother Family Medical History: CVA/TIA Medications and Allergies Home Medications Medication Instructions Recorded Confirmed Type Acetaminophen Tab [Tylenol Tab] 650 mg PO Q6H PRN 06/22/17 06/22/17 History Amino Acids/Protein Hydrolys 30 ml PO BID 06/22/17 06/22/17 History [Pro-Stat Supplement] Artificial Tears-Hypromellose 2 drops BOTH EYES BID PRN 06/22/17 06/22/17 History [Artificial Tear Drops] Aspirin EC [Ecotrin Low Dose] 81 mg PO HS 06/22/17 06/22/17 History Bisacodyl 10 mg RECTAL DAILY PRN 06/22/17 06/22/17 History Ciclopirox Olamine [Loprox 0.77% 1 applic TOPICAL BID 06/22/17 06/22/17 History cream] Citalopram Hydrobromide [CeleXA] 20 mg PO DAILY 06/22/17 06/22/17 History Ipratropium-Albuterol Nebulize 3 ml INHALATION RT-Q6H PRN 06/22/17 06/22/17 History [Duoneb 0.5 mg-3 mg/3 ml Soln] Latanoprost Ophth [Xalatan 0.005%] 1 drops BOTH EYES HS@199906/22/17 06/22/17 History Magnesium Hydroxide [Milk of 2,400 mg PO DAILY PRN 06/22/17 06/22/17 History Magnesia] Meclizine [Antivert] 12.5 mg PO Q8H PRN 06/22/17 06/22/17 History Omeprazole 20 mg PO DAILY 06/22/17 06/22/17 History Polyethylene Glycol 3350 [Miralax] 17 gm PO DAILY 06/22/17 06/22/17 History Sennosides [Senna] 8.6 mg PO HS@199906/22/17 06/22/17 History amLODIPine/ATORVASTATIN [Caduet 10 1 tab PO DAILY 06/22/17 06/22/17 History mg-10 mg Tablet] Allergies Allergy/AdvReac Type Severity Reaction Status Date / Time No Known Allergies Allergy Verified 06/22/17 17:22 Exam - Vital Signs Vital signs: Vital Signs Temp Pulse Pulse Resp BP Pulse Ox 06/28/17 16:37 95 14 06/28/17 16:26 95 14 95 06/28/17 15:00 96.4 F L 92 16 98/59 92 L 06/28/17 07:00 96.2 F L 92 16 114/58 94 L 06/27/17 23:00 98.3 F 77 18 102/56 90 L Intake and Output 06/28/17 06/28/17 06/28/17 06:59 14:59 22:59 Output Total 300 Balance -300 Output: Urine 300 Other: Voiding Method Indwelling Catheter Indwelling Catheter # Voids 1 # Bowel Movements 1 Weight 80 kg 80 kg Patient Weight 06/29/17 06:59 Weight 80 kg Results Pathology from a paracentesis done June 22 shows positive for carcinoma, most consistent with non-mucinous ovarian or primary peritoneal serous origin. 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 Given the advanced stage and her other morbidities, prognosis is very poor whether she were to consider treatment or simply have palliative care. If she and/or her family did request further treatment, I would recommend evaluation by a [facility] oncologist (Dr. Hernandez at [facility]). Again based on her age, other comorbidities, and stage of disease, I would recommend palliative care most likely involving hospice. Quality of life would most likely be better if taken this approach. I am not convinced that chemotherapy or other treatment options at this point would give her any better quality of life for what she has left. I did have a viviana conversation with Samantha in regards to this and I believe she is understanding of her diagnosis and prognosis. She indicated to me that she would speak with her primary physician and family in regards to the next step. Thank you very much for this consultation. If you have any further questions please feel free to contact me. Status: Acute
--- NOTE | 2017-06-28 19:09 | P.PN ---
Subjective Principal diagnosis: Abdominal pain, ascites 87-year-old female admitted to the hospital for abdominal pain and new onset ascites. Patient was recently hospitalized at [facility] for urinary tract infection she was discharged to [facility]. Patient had diagnostic paracentesis in the ER. Cytology is consistent with ovarian cancer. Patient also had a CA-125 which was elevated approximately 308 Objective - Vital Signs Vital signs: Vital Signs Temp 96.4 F L 06/28/17 15:00 Pulse 95 06/28/17 16:37 Resp 14 06/28/17 16:37 BP 98/59 06/28/17 15:00 Pulse Ox 95 06/28/17 16:26 Intake & Output 06/28/17 06/28/17 06/29/17 06:59 18:59 06:59 Output Total 550 650 Balance -550 -650 Weight 80 kg 80 kg Output: Urine 550 650 Other: Voiding Method Indwelling Catheter Indwelling Catheter # Voids 1 # Bowel Movements 1 - Exam General: [Patient awake, alert and oriented times 3. Patient in no acute distress.] HEENT: [PERRL. EOMI. No pharyngeal erythema or exudate.] Neck: [No adenopathy.] Cardiac: [Heart regular in rate and rhythm. No S3. No S4. No clicks, rubs. No murmur.] Lungs: [Clear to auscultation bilaterally.] Abdomen: [No mass. No organomegaly. Bowel sounds presnt and normoactive in all 4 quadrants.] Distended Extremes: [No edema no cyanosis no claudication normal pulses] : [] Musculoskeletal: [No joint erythema, edema or tenderness.] Skin: [No rash.] Neurologic: [No lateralizing deficits. CN II - XII grossly intact.] Lymphatic: [No adenopathy.] - Labs CBC & Chem 7: 06/27/17 07:54 06/27/17 07:54 Assessment and Plan Plan: Assessment and plan Ascites Paracentesis has been performed with cytology consistent with ovarian cancer O2 dependent COPD Hypertension currently controlled on amlodipine Hyperlipidemia patient's currently on atorvastatin Diastolic CHF currently utilizing Lasix and potassium Abnormal CEA 125 no evidence of ovarian abnormalities on CT, ultrasound none diagnostic.
[2017-06-28] MEDS: ASPIRIN 81 MG CHEW PO SCH (20:38)
[2017-06-28] MEDS: SENNOSIDES 8.6 MG TAB PO SCH (20:38)
[2017-06-28] MEDS: LATANOPROST 0.005% OPHTH DROPS 2.5 ML BTL BOTH EYES SCH (21:29)
[2017-06-29] MEDS: PANTOPRAZOLE 40 MG TABLET PO SCH (07:35)
[2017-06-29] MEDS: SPIRONOLACTONE 25 MG TAB PO SCH (07:35)
[2017-06-29] MEDS: FUROSEMIDE 10 MG/ML 10 ML VIAL IV SCH ×2 (07:35→20:01)
[2017-06-29] MEDS: CITALOPRAM HYDROBROMIDE 20 MG TAB PO SCH (07:35)
[2017-06-29] MEDS: POLYETHYLENE GLYCOL 3350 17 GM POWD.PACK PO SCH (07:35)
[2017-06-29] MEDS: CLOTRIMAZOLE 1% CREAM 15 GM TUBE TOPICAL SCH ×2 (07:36→20:04)
[2017-06-29] MEDS: HYDROmorphone 1 MG/ML 1 ML SYRINGE IM PRN ×2 (15:03→17:16)
[2017-06-29] MEDS: ONDANSETRON 4 MG/2 ML VIAL IVP PRN (15:03)
--- NOTE | 2017-06-29 15:05 | P.PN ---
Subjective Principal diagnosis: Abdominal pain, ascites 87-year-old female admitted to the hospital for abdominal pain and new onset ascites. Patient was recently hospitalized at [facility] for urinary tract infection she was discharged to [facility]. Patient had diagnostic paracentesis in the ER. Cytology is consistent with ovarian cancer. Patient also had a CA-125 which was elevated approximately 308. Discussed at length with patient the significant risk, of treatment at her advanced age and with her comorbidities. Patient stated at that time she was to talk to both her son and daughter before making any decisions. ID agreed to discuss anything she would like with them, and make myself available. Objective - Vital Signs Vital signs: Vital Signs Temp 98.8 F 06/29/17 07:00 Pulse 87 06/29/17 07:00 Resp 16 06/29/17 07:00 BP 101/62 06/29/17 07:00 Pulse Ox 93 L 06/29/17 07:00 Intake & Output 06/28/17 06/29/17 06/29/17 18:59 06:59 18:59 Output Total 650 350 Balance -650 -350 Weight 80 kg 80 kg Output: Urine 650 350 Other: Voiding Method Indwelling Catheter Indwelling Catheter # Voids 1 # Bowel Movements 1 - Exam General: [Patient awake, alert and oriented times 3. Patient in no acute distress.] HEENT: [PERRL. EOMI. No pharyngeal erythema or exudate.] Neck: [No adenopathy.] Cardiac: [Heart regular in rate and rhythm. No S3. No S4. No clicks, rubs. No murmur.] Lungs: [Clear to auscultation bilaterally.] Abdomen: [No mass. No organomegaly. Bowel sounds presnt and normoactive in all 4 quadrants.] Distended Mild to moderate tenderness throughout abdomen Extremes: [No edema no cyanosis no claudication normal pulses] : [] Musculoskeletal: [No joint erythema, edema or tenderness.] Skin: [No rash.] Neurologic: [No lateralizing deficits. CN II - XII grossly intact.] Lymphatic: [No adenopathy.] - Labs CBC & Chem 7: 06/27/17 07:54 06/27/17 07:54 Assessment and Plan Plan: Assessment and plan Ascites Paracentesis has been performed with cytology consistent with ovarian cancer O2 dependent COPD Hypertension currently controlled on amlodipine Hyperlipidemia patient's currently on atorvastatin Diastolic CHF currently utilizing Lasix and potassium Abnormal CEA 125 no evidence of ovarian abnormalities on CT, ultrasound none diagnostic. Prognosis is extremely poor
--- NOTE | 2017-06-29 15:47 | CDI ---
In responding to this query, please exercise your independent professional judgment. The [facility] Coding Staff and Clinical Documentation Specialists appreciate your assistance in clarifying documentation, maintaining compliance with coding guidelines, accurately documenting patients condition and capturing severity of illness. The fact that a question is asked does not imply that any particular answer is desired or expected. Communication forms are a method of clarifying documentation and are not made part of the Legal Health Record. Thank you in advance for your clarification. Last Revision, September 2015 Bear Whitman [address] [facility] [place] [address] Documentation Clarification Form Date: 06/29/2017 3:35:00 PM From: Mali Mcadams Admit Date: 06/22/2017 9:13:00 PM Patient Name: Samantha Lomeli Visit Number: [id number] Discharge Date: Dr. Priyank Hernandez History/Risk Factor: Chronic Kidney disease, COPD, CAD, Hypertension Current BUN 67, CR 2.04, GFR 23 Patients Admission: BUN 66, CR 1.50, GFR 33 Clinical Indicators: complains of diffuse abdominal pain, loose bowel movement, feels bloated, and weakness. Mucous membranes are dry. Treatment: Monitor Labs IV Fluids (given in ER) In order to capture the severity of condition, please clarify if the condition signifies: CKD Stage 1 (GFR > 90) CKD Stage 2 (GFR 60-89) CKD Stage 3 (GFR 30-59) CKD Stage 4 (GFR 15-29) CKD Stage 5 (GFR <15) ESRD Unable to determine Other condition, please specify Please document in your progress notes and discharge summary in order to capture severity of illness and risk of mortality. Include clinical findings that support your diagnosis. FYI: Press F11 to launch patient chart. FRANKIE
[2017-06-29] MEDS: LATANOPROST 0.005% OPHTH DROPS 2.5 ML BTL BOTH EYES SCH (20:06)
[2017-06-29] MEDS: SENNOSIDES 8.6 MG TAB PO SCH (20:06)
[2017-06-29] MEDS: ASPIRIN 81 MG CHEW PO SCH (20:07)
[2017-06-30] MEDS: SPIRONOLACTONE 25 MG TAB PO SCH (08:17)
[2017-06-30] MEDS: PANTOPRAZOLE 40 MG TABLET PO SCH (08:17)
[2017-06-30] MEDS: POLYETHYLENE GLYCOL 3350 17 GM POWD.PACK PO SCH (08:17)
[2017-06-30] MEDS: CITALOPRAM HYDROBROMIDE 20 MG TAB PO SCH (08:17)
[2017-06-30] MEDS: FUROSEMIDE 10 MG/ML 10 ML VIAL IV SCH ×2 (08:18→20:48)
[2017-06-30] MEDS: CLOTRIMAZOLE 1% CREAM 15 GM TUBE TOPICAL SCH ×2 (08:18→20:49)
[2017-06-30] MEDS: ONDANSETRON 4 MG/2 ML VIAL IVP PRN (12:48)
[2017-06-30] MEDS: ACETAMINOPHEN TAB 325 MG TAB PO PRN ×2 (12:49→21:54)
[2017-06-30] MEDS: HYDROmorphone 1 MG/ML 1 ML SYRINGE IVP PRN (14:57)
[2017-06-30] MEDS ORDERED: HYDROmorphone 1 MG/ML 1 ML SYRINGE IVP PRN (15:00)
--- NOTE | 2017-06-30 18:56 | P.PN ---
Subjective Principal diagnosis: Abdominal pain, ascites 87-year-old female admitted to the hospital for abdominal pain and new onset ascites. Patient was recently hospitalized at [facility] for urinary tract infection she was discharged to [facility]. Patient had diagnostic paracentesis in the ER. Cytology is consistent with ovarian cancer. Patient also had a CA-125 which was elevated approximately 308. Discussed at length with patient the significant risk, of treatment at her advanced age and with her comorbidities. Including stage III renal failure including O2 dependent COPD, including diastolic CHF Patient stated at that time she was to talk to both her son and daughter before making any decisions. ID agreed to discuss anything she would like with them, and make myself available. Objective - Vital Signs Vital signs: Vital Signs Temp 97.7 F 06/30/17 15:00 Pulse 96 06/30/17 15:00 Resp 16 06/30/17 16:00 BP 84/50 06/30/17 15:00 Pulse Ox 95 06/30/17 15:00 Intake & Output 06/29/17 06/30/17 06/30/17 18:59 06:59 18:59 Intake Total 350 120 Output Total 7031 175 4740 Balance -1000 -100 -1580 Weight 77 kg 77 kg Intake: Oral 350 120 Output: Urine 1000 450 800 Uretheral (Schwab) 150 150 Stool 900 Other: Voiding Method Indwelling Catheter Indwelling Catheter Indwelling Catheter # Voids 1 - Exam General: [Patient awake, alert and oriented times 3. Patient in no acute distress.] HEENT: [PERRL. EOMI. No pharyngeal erythema or exudate.] Neck: [No adenopathy.] Cardiac: [Heart regular in rate and rhythm. No S3. No S4. No clicks, rubs. No murmur.] Lungs: [Clear to auscultation bilaterally.] Abdomen: [No mass. No organomegaly. Bowel sounds presnt and normoactive in all 4 quadrants.] Distended Mild to moderate tenderness throughout abdomen Extremes: [No edema no cyanosis no claudication normal pulses] : [] Musculoskeletal: [No joint erythema, edema or tenderness.] Skin: [No rash.] Neurologic: [No lateralizing deficits. CN II - XII grossly intact.] Lymphatic: [No adenopathy.] - Labs CBC & Chem 7: 06/27/17 07:54 06/27/17 07:54 Assessment and Plan Plan: Assessment and plan Ascites Paracentesis has been performed with cytology consistent with ovarian cancer O2 dependent COPD Hypertension currently controlled on amlodipine Hyperlipidemia patient's currently on atorvastatin Diastolic CHF currently utilizing Lasix and potassium Abnormal CEA 125 no evidence of ovarian abnormalities on CT, ultrasound none diagnostic. Prognosis is extremely poor
--- NOTE | 2017-06-30 19:13 | P.DS ---
Providers Date of admission: 06/22/17 21:13 Expected date of discharge: 07/01/17 Attending physician: Tab Graham Consults: 06/24/17 09:08 Consult Physician Routine Consulting Provider: Tavon Clay Consult Reason/Comments: abdominal pain, hypoactive bowel sounds Do you want consulting provider notified?: Yes 06/24/17 09:10 Consult Physician Routine Consulting Provider: Elizabeth Soto Consult Reason/Comments: CHF Do you want consulting provider notified?: Yes 06/28/17 11:41 Consult Physician Routine Consulting Provider: Mark Goodson Consult Reason/Comments: ASCITIC FLUID: + FOR CARCINOMA, CONSISTENT WITH OVARIAN Do you want consulting provider notified?: Yes [facility] Course: Patient was admitted with gross ascites underwent peritoneal aspiration for cytology, is diagnosed with ovarian cancer Due to patient's advanced age and comorbidities including O2 dependent lung disease, stage III renal failure, diastolic heart failure Decision was made to proceed with hospice General: [Patient awake, alert and oriented times 3. Patient in no acute distress.] HEENT: [PERRL. EOMI. No pharyngeal erythema or exudate.] Neck: [No adenopathy.] Cardiac: [Heart regular in rate and rhythm. No S3. No S4. No clicks, rubs. No murmur.] Lungs: [Clear to auscultation bilaterally.] Abdomen: [No mass. No organomegaly. Bowel sounds presnt and normoactive in all 4 quadrants.] Extremes: [No edema no cyanosis no claudication normal pulses] : [] Musculoskeletal: [No joint erythema, edema or tenderness.] Skin: [No rash.] Neurologic: [No lateralizing deficits. CN II - XII grossly intact.] Lymphatic: [No adenopathy.] Patient Condition at Discharge: Poor Plan - Discharge Summary New Discharge Prescriptions: No Action Artificial Tears-Hypromellose [Artificial Tear Drops] 2 drops BOTH EYES BID PRN PRN Reason: Dry Eye(S) Acetaminophen Tab [Tylenol Tab] 650 mg PO Q6H PRN PRN Reason: Pain Meclizine [Antivert] 12.5 mg PO Q8H PRN PRN Reason: DIZZINESS Magnesium Hydroxide [Milk of Magnesia] 2,400 mg PO DAILY PRN PRN Reason: Constipation Ipratropium-Albuterol Nebulize [Duoneb 0.5 mg-3 mg/3 ml Soln] 3 ml INHALATION RT-Q6H PRN PRN Reason: Shortness Of Breath Bisacodyl 10 mg RECTAL DAILY PRN PRN Reason: Constipation Amino Acids/Protein Hydrolys [Pro-Stat Supplement] 30 ml PO BID Sennosides [Senna] 8.6 mg PO HS@1999 Omeprazole 20 mg PO DAILY Ciclopirox Olamine [Loprox 0.77% cream] 1 applic TOPICAL BID Polyethylene Glycol 3350 [Miralax] 17 gm PO DAILY Latanoprost Ophth [Xalatan 0.005%] 1 drops BOTH EYES HS@1999 Citalopram Hydrobromide [CeleXA] 20 mg PO DAILY amLODIPine/ATORVASTATIN [Caduet 10 mg-10 mg Tablet] 1 tab PO DAILY Aspirin EC [Ecotrin Low Dose] 81 mg PO HS Discharge Medication List Acetaminophen Tab [Tylenol Tab] 650 mg PO Q6H PRN 06/22/17 [History] Amino Acids/Protein Hydrolys [Pro-Stat Supplement] 30 ml PO BID 06/22/17 [ History] Artificial Tears-Hypromellose [Artificial Tear Drops] 2 drops BOTH EYES BID PRN 06/22/17 [History] Aspirin EC [Ecotrin Low Dose] 81 mg PO HS 06/22/17 [History] Bisacodyl 10 mg RECTAL DAILY PRN 06/22/17 [History] Ciclopirox Olamine [Loprox 0.77% cream] 1 applic TOPICAL BID 06/22/17 [History] Citalopram Hydrobromide [CeleXA] 20 mg PO DAILY 06/22/17 [History] Ipratropium-Albuterol Nebulize [Duoneb 0.5 mg-3 mg/3 ml Soln] 3 ml INHALATION RT -Q6H PRN 06/22/17 [History] Latanoprost Ophth [Xalatan 0.005%] 1 drops BOTH EYES HS@199906/22/17 [History] Magnesium Hydroxide [Milk of Magnesia] 2,400 mg PO DAILY PRN 06/22/17 [History] Meclizine [Antivert] 12.5 mg PO Q8H PRN 06/22/17 [History] Omeprazole 20 mg PO DAILY 06/22/17 [History] Polyethylene Glycol 3350 [Miralax] 17 gm PO DAILY 06/22/17 [History] Sennosides [Senna] 8.6 mg PO HS@199906/22/17 [History] amLODIPine/ATORVASTATIN [Caduet 10 mg-10 mg Tablet] 1 tab PO DAILY 06/22/17 [ History] Follow up Appointment(s)/Referral(s): Rodolfo Pride MD [Primary Care Provider] - 1-2 days [facility] [place], [NON-STAFF] - As Needed Patient Instructions/Handouts: Heart Failure (DC), Acute Abdominal Pain (DC), Ascites (DC) Activity/Diet/Wound Care/Special Instructions: Cardiac diet. [facility] [phone] Discharge Disposition: DISCH TO HOSPICE [facility]
[2017-06-30] MEDS: LATANOPROST 0.005% OPHTH DROPS 2.5 ML BTL BOTH EYES SCH (20:48)
[2017-06-30] MEDS: ASPIRIN 81 MG CHEW PO SCH (20:48)
[2017-06-30] MEDS: SENNOSIDES 8.6 MG TAB PO SCH (22:06)
[2017-07-01 08:06] VITALS: BP 109/58; PULSE 95; RESP 18; TEMP 97.3
[2017-07-01] MEDS: POLYETHYLENE GLYCOL 3350 17 GM POWD.PACK PO SCH (08:53)
[2017-07-01] MEDS: PANTOPRAZOLE 40 MG TABLET PO SCH (08:54)
[2017-07-01] MEDS: CITALOPRAM HYDROBROMIDE 20 MG TAB PO SCH (08:54)
[2017-07-01] MEDS: FUROSEMIDE 10 MG/ML 10 ML VIAL IV SCH (08:54)
[2017-07-01] MEDS: SPIRONOLACTONE 25 MG TAB PO SCH (08:55)
[2017-07-01] MEDS: CLOTRIMAZOLE 1% CREAM 15 GM TUBE TOPICAL SCH (08:55)
[2017-07-01] MEDS: ACETAMINOPHEN TAB 325 MG TAB PO PRN (09:02)
== END 2017-07-01 14:29 | disposition hospice, home (50) | DRG 755 ==
LOC: EC 16:53 → 4MS4W 21:13
PROVIDERS: ADMIT Family Medicine; ATTEND Family Medicine
PROC: 0W9G3ZX Drainage of Peritoneal Cavity, Percutaneous Approach, Diagnostic (ICD-10-PCS; principal; 2017-06-27)
DX: C56.9 Malignant neoplasm of unspecified ovary (principal); E87.1 Hypo-osmolality and hyponatremia; R18.0 Malignant ascites; I31.3 Pericardial effusion (noninflammatory); I13.0 Hypertensive heart and chronic kidney disease with heart failure and stage 1 through stage 4 chronic kidney disease, or unspecified chronic kidney disease; I50.32 Chronic diastolic (congestive) heart failure; E78.5 Hyperlipidemia, unspecified; F32.9 Major depressive disorder, single episode, unspecified; I25.10 Atherosclerotic heart disease of native coronary artery without angina pectoris; J44.9 Chronic obstructive pulmonary disease, unspecified; N18.3 Chronic kidney disease, stage 3 (moderate); Z66 Do not resuscitate; Z79.899 Other long term (current) drug therapy; Z79.82 Long term (current) use of aspirin; Z99.81 Dependence on supplemental oxygen; Z96.651 Presence of right artificial knee joint; Z80.0 Family history of malignant neoplasm of digestive organs
CPT/HCPCS: 36415; 49083; 71020; 74176; 76856; 80048; 80053; 80074; 81003; 82042; 82140; 82150; 82378; 82550; 82553; 82945; 83605; 83615; 83690; 83735; 83880; 84075; 84157; 84450; 84460; 84484; 85025; 85027; 85610; 85730; 86301; 86304; 87070; 87077; 87086; 87186; 87205; 88108; 88305; 88341; 88342; 89050; 93005; 93306; 94640; 94760; 96361; 96365; 96375; 99285